=== PATIENT | female | born 1975 | race Caucasian/White ===

== ENCOUNTER → 2024-03-14 17:28 | Outpatient (REF) | payer MEDICARE, OTHER, SELFPAY | LOC: RAD 17:28 | PROVIDERS: ATTENDING PHYSICIAN Urology; FAMILY PHYSICIAN Internal Medicine | DX: N31.9 Neuromuscular dysfunction of bladder, unspecified (principal); R33.9 Retention of urine, unspecified | CPT/HCPCS: 76775 ==

== ENCOUNTER 2024-03-16 12:52 | Emergency (ER) | payer MEDICARE, OTHER, SELFPAY ==
[2024-03-16 12:59] VITALS: BP 131/88
--- NOTE | 2024-03-16 15:14 | ED.GENMED ---
History of Present Illness
General
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
Source: patient
Exam Limitations: none
Time Seen by Provider: 03/16/24 14:51
History of Present Illness
History of Present Illness:
See MDM
Past History
Past History
ED Past Medical History: Cancer (Melanoma), Other and Other (Cerebral palsy, sacral decub, Urinary retention, )
ED Past Surgical History: Orthopedic (achilles cut, right hip surgery)
Social History
Tobacco: Non-smoker
Alcohol: None
Drug: None
Personal: Single
Living: with family
Employment: Not employed
Family History
Family History: CAD
Phy Exam
Physical Exam
Physical Exam:
See MDM
Course
Vital Signs
Initial and Last Documented VS:
Initial Vital Signs
Pulse Resp BP Pulse Ox
72 16 131/88 98
03/16/24 12:59 03/16/24 12:59 03/16/24 12:59 03/16/24 12:59
Last Documented Vital Signs
Pulse Resp BP Pulse Ox
72 16 131/88 98
03/16/24 12:59 03/16/24 12:59 03/16/24 12:59 03/16/24 12:59
Procedures
Urinary Catheter
Procedure completed by: Markel Escobedo DO
Type of urinary catheter: indwelling catheter
Catheter size (danish): 22
Urine description: cloudy
Urine output (ml): 100
MDM/Problems Addressed
Differential Diagnosis Includes:
HPI and MDM Narrative:
48-year-old female with a history of cerebral palsy presenting for evaluation of clogged suprapubic Lindsey. She is due to have the suprapubic changed next week but mother was concerned because it was no longer draining. She is currently on
antibiotics for UTI
Physical exam
General: Well appearing and non-toxic
HEENT: protecting airway
Neck: appears supple
CV: No evidence of cyanosis
Resp: No accessory muscle use
Abd: Non-distended
: Suprapubic Lindsey with sediment
Extremities: Contractures
Neuro: alert
Psych: Normal affect
Skin: Intact
Problems Addressed including Acute and Chronic Conditions affecting care:
1. Suprapubic Lindsey catheter blocked
Acuity: acute
Prognosis: stable
Details: Will change the catheter. She has follow-up next week
Updates
The 22 Turkish 10 mL balloon was removed and replaced with a 22 Turkish 5 mm balloon. Patient tolerated procedure well and discussed follow-up with her urologist next week
Differential Diagnosis (but not limited to): UTI, clogged Lindsey catheter
Testing considered: Urinalysis but she is already on antibiotics
Drug therapy (if applicable): OTC meds, please see d/c instruction regarding Rx drugs
Amount and/or Complexity of Data Reviewed
Clinical info obtained from: Mother
External data reviewed: N/A
Labs I independently reviewed (but not limited to): N/A
Radiology: N/A
Pulse Ox: not hypoxic
EKG independently reviewed: N/A
Cooler Tender: N/A
Critical Care: N/A
Risk of Complication:
Social Determinants of health: Good social support
Discussed with other providers: N/A
Escalation of Care includes Admit/Obs: After being observed in the Emergency Department, pt stable for discharge.
Occasional wrong word or 'sound a like' substitutions may have occurred due to the inherent limitations of voice recognition software. Read the chart carefully and recognize, using context, where substitutions have occurred.
*Critical Care Note
Total Time (30-74mins, 75-104mins- exclusive of procedures): Not Applicable
ED Attending Note
-
Portions of this chart may have been created with voice recognition software.� Occasional wrong word or��sound alike� substitutions may have occurred due to the inherent limitations of voice recognition software.
Discharge Plan
Departure
Patient Disposition: Home (Routine Discharge)
Date of Disposition: 03/16/24
Time of Disposition: 15:44
Patient with high blood pressure during this ER visit?: No
Discharge Problem:
Blocked suprapubic catheter
Instructions: How to care for a urinary catheter
Prescriptions:
No Action
acetaminophen 650 MG/20.3 ML solution
650 mg PO PRN PRN (Reason: fever/pain)
Patient Comments:
powder form, placed directly in mouth, no mixing needed
baclofen 10 MG tablet
10 mg PO DAILY
ascorbic acid (vitamin C) [Vitamin C] 500 MG tablet
1,000 mg PO DAILY
cyanocobalamin (vitamin B-12) 1,000 MCG tablet
1,000 mcg PO DAILY
polyethylene glycol 3350 [Miralax] 17 gram Powder In Packet
17 g PO DAILY
zinc
50 mg PO DAILY
cefdinir 250 mg/5 mL suspension for reconstitution
300 mg PO BID 7 Days Qty: 84 0RF
Referrals:
Samm Messer I., DO [Family Provider] -
Activity Restrictions/Additional Instructions:
Please keep the urology appointment next week. She may benefit from intermittent flushing of the Lindsey catheter.
Please return for any worsening symptoms.
You may return at any time if you have further concerns.
Interventions
Interventions:
*Risk Screen - Suicide Last Done: 03/16/24 12:59
*Neglect/Abuse Screening Last Done: 03/16/24 12:59
Discharge Date and Time
Print Language: ALBANIAN
== END 2024-03-16 15:58 | disposition home or self-care (01) ==
LOC: EMR 12:52
PROVIDERS: EMERGENCY PHYSICIAN Student in an Organized Health Care Education/Training Program; FAMILY PHYSICIAN Internal Medicine
DX: T83.090A Other mechanical complication of cystostomy catheter, initial encounter (principal); Y92.9 Unspecified place or not applicable; G80.8 Other cerebral palsy; Z82.49 Family history of ischemic heart disease and other diseases of the circulatory system; Z85.820 Personal history of malignant melanoma of skin
CPT/HCPCS: 99282

== ENCOUNTER 2024-05-11 21:23 | Emergency (ER) | payer MEDICARE, OTHER, SELFPAY ==
[2024-05-11 21:43] VITALS: BP 124/74
[2024-05-11 22:26] VITALS: BMI 24.8
--- NOTE | 2024-05-11 23:08 | ED.GENMED ---
History of Present Illness
General
Chief Complaint: Skin Surface Trauma
Source: family
Exam Limitations: clinical condition
Time Seen by Provider: 05/11/24 22:00
History of Present Illness
History of Present Illness:
This is a 48-year-old wheelchair-bound female with a history of cerebral palsy who presents after her left foot scraped on a door going into a restaurant. The patient unfortunately suffered an avulsion of the nail of the left no other complaints.
Chronic suprapubic catheter that mom cared for at home.
Past History
Past History
ED Past Medical History: Cancer (Melanoma), Other and Other (Cerebral palsy, sacral decub, Urinary retention secondary to neurogenic bladder)
ED Past Surgical History: Orthopedic (achilles cut, right hip surgery)
Social History
Tobacco: Non-smoker
Alcohol: None
Drug: None
Personal: Single
Living: with family
Employment: Not employed
Family History
Family History: CAD
Phy Exam
Physical Exam
Physical Exam:
CONSTITUTIONAL Vital signs reviewed, Patient alert . Well-appearing
HEAD atraumatic.
EYES eyelids normal to inspection, Extraocular muscles intact, Conjunctiva normal, Sclera normal.
NECK normal range of motion, Trachea midline, no jugular venous distention.
RESP no respiratory distress
UPPER EXTREMITY no obvious cyanosis or edema
LOWER EXTREMITY no obvious cyanosis. There is an avulsion to the nail of the left second digit. No active bleeding. Wound was irrigated extensively during exam
SKIN Skin warm, dry, and normal in color.
Course
Vital Signs
Initial and Last Documented VS:
Initial Vital Signs
Pulse Resp BP Pulse Ox
60 22 124/74 98
05/11/24 21:43 05/11/24 21:43 05/11/24 21:43 05/11/24 21:43
Last Documented Vital Signs
Temp Pulse Resp BP Pulse Ox
98.4 F 60 22 124/74 98
05/11/24 22:25 05/11/24 21:43 05/11/24 21:43 05/11/24 21:43 05/11/24 21:43
MDM/Problems Addressed
MDM/Problems Addressed:
Nail avulsion
*Pulse Oximetry
Patient hypoxic: no
*Critical Care Note
Total Time (30-74mins, 75-104mins- exclusive of procedures): Not Applicable
Data Reviewed
Source: family
Prescriptions/Medications Considered But Not Given:
Considered antibiotics but wound was irrigated extensively
Patient Management
Escalation/DeEscalation of care consider admission/obs:
Wound was irrigated and a piece of Vaseline gauze was placed in the nail fold. She will follow-up with podiatry this week
ED Attending Note
-
Portions of this chart may have been created with voice recognition software.� Occasional wrong word or��sound alike� substitutions may have occurred due to the inherent limitations of voice recognition software.
Discharge Plan
Departure
Patient Disposition: Home (Routine Discharge)
Date of Disposition: 05/11/24
Time of Disposition: 23:09
Patient with high blood pressure during this ER visit?: No
Discharge Problem:
Nail avulsion of toe
Instructions: Wound Care (DC)
Prescriptions:
No Action
acetaminophen 650 MG/20.3 ML solution
650 mg PO PRN PRN (Reason: fever/pain)
Patient Comments:
powder form, placed directly in mouth, no mixing needed
baclofen 10 MG tablet
10 mg PO DAILY
ascorbic acid (vitamin C) [Vitamin C] 500 MG tablet
1,000 mg PO DAILY
cyanocobalamin (vitamin B-12) 1,000 MCG tablet
1,000 mcg PO DAILY
polyethylene glycol 3350 [Miralax] 17 gram Powder In Packet
17 g PO DAILY
zinc
50 mg PO DAILY
cefdinir 250 mg/5 mL suspension for reconstitution
300 mg PO BID 7 Days Qty: 84 0RF
Referrals:
Samm Messer I., DO [Family Provider] -
Activity Restrictions/Additional Instructions:
Please follow-up with podiatry in the next 3 to 5 days as discussed. Keep dressing intact until seen by podiatry. Return immediately for redness, drainage, pain or any other concerns.
Interventions
Interventions:
*General Assessment Last Done: 05/11/24 22:27
*Neglect/Abuse Screening Last Done: 05/11/24 22:27
*ED- Fall Risk Assessment Last Done: 05/11/24 22:27
*ED COVID-19 Vaccine History Last Done: 05/11/24 22:27
ED-Skin Assessment Last Done: 05/11/24 22:14
Discharge Date and Time
Print Language: NEPALI
== END 2024-05-11 23:20 | disposition home or self-care (01) ==
LOC: EMR 21:23
PROVIDERS: EMERGENCY PHYSICIAN Emergency Medicine; FAMILY PHYSICIAN Internal Medicine
DX: S91.205A Unspecified open wound of left lesser toe(s) with damage to nail, initial encounter (principal); W22.09XA Striking against other stationary object, initial encounter; G80.8 Other cerebral palsy; N31.9 Neuromuscular dysfunction of bladder, unspecified; Z85.820 Personal history of malignant melanoma of skin
CPT/HCPCS: 99282

== ENCOUNTER → 2024-07-23 13:03 | Outpatient (REF) | payer MEDICARE, OTHER, SELFPAY ==
[2024-07-23 14:19] LABS: Urine Albumin 3+ (Neg - Trace); Urine Bilirubin Negative (Negative); Urine Character Cloudy (Clear); Urine Color Brown; Urine Glucose Negative (Negative); Urine Ketone 3+ (Negative); Urine Leukocyte 2+ (Negative); Urine Nitrite Negative (Negative); Urine Occult Blood 4+ (Negative); Urine Urobilinogen Negative (Neg - 1+)
[2024-07-23 14:38] LABS: Urine Squamous Cell 16-20 /LPF (Few)
[2024-07-23 14:39] LABS: Urine Amorphous Seen; Urine Triple Phosphate Crystal Present
[2024-07-23 14:42] LABS: Urine Red Blood Cell 80-90 /HPF (0-2)
[2024-07-23 14:43] LABS: Urine Bacteria Many (Negative); Urine White Cell 26-30 /HPF (0-5)
== END ==
LOC: CLAB 13:03
PROVIDERS: ATTENDING PHYSICIAN Internal Medicine; REFERRING PHYSICIAN Urology
DX: R33.9 Retention of urine, unspecified (principal); Z43.5 Encounter for attention to cystostomy
CPT/HCPCS: 81003; 81015; 87077; 87086; 87088; 87186

== ENCOUNTER 2024-07-23 20:20 | Inpatient (IN) | payer MEDICARE, OTHER, SELFPAY ==
[2024-07-23] VITALS (19 sets, daily range): BP systolic 101–167; BP diastolic 60–106; BMI 22.3; BMI 22.6
[2024-07-23 17:29] LABS: % Basophils 0.5 % (0-2); % Eosinophils 0.1 % (0-6); % Lymphocytes 7.2 % (20.5-51.1); % Monocytes 8.3 % (1.7-9.3); % Neutrophils 82.9 % (42.2-75.2); Absolute Basophils 0.1 10^3/uL (0-0.2); Absolute Immature Granulocytes 0.2 10^3/uL (0-0.05); Absolute Lymphocytes 1.1 10^3/uL (1.2-3.4); Absolute Monocytes 1.3 10^3/uL (0.1-0.6); Absolute Neutrophils 12.9 10^3/uL (1.4-6.5); Hematocrit 43.6 % (37.0-47.0); Hemoglobin 14.1 g/dL (12.0-16.0); Mean Corp Hgb Conc. 32.3 g/dL (33.0-37.0); Mean Corpuscular Hgb 28.8 pg (27.0-31.0); Mean Corpuscular Volume 89.2 fL (81.0-99.0); Mean Platelet Volume 9.9 fL (7.4-10.4); Nucleated Red Blood Cells % 0 %; Platelet Count 329 10^3/uL (130-400); Red Blood Cell Count 4.89 10^6/uL (4.20-5.40); White Blood Cell Count 15.5 10^3/uL (4.8-10.8)
--- NOTE | 2024-07-23 17:52 | ED.GENMED ---
History of Present Illness
General
Chief Complaint: Fever
Time Seen by Provider: 07/23/24 16:41
History of Present Illness
History of Present Illness:
48-year-old female with history of cerebral palsy and chronic suprapubic catheter presenting to the emergency department for fever and lethargy. Patient arrives with parents report fever started today, patient was having shaking chills. Suprapubic
catheter was last changed a week ago, however note foul odor to the urine. No report of recent cough or sick contacts. Patient limited historian given her cerebral palsy. Last dose of Tylenol was this morning. No additional history or symptoms
reported at this time
Past History
Past History
ED Past Medical History: Cancer (Melanoma), Other and Other (Cerebral palsy, sacral decub, Urinary retention secondary to neurogenic bladder)
ED Past Surgical History: Orthopedic (achilles cut, right hip surgery)
Social History
Tobacco: Non-smoker
Alcohol: None
Drug: None
Personal: Single
Living: with family
Employment: Not employed
Family History
Family History: CAD
Phy Exam
Physical Exam
Physical Exam:
General: No acute distress
HEENT: protecting airway
Neck: appears supple
CV: Tachycardic, regular rhythm
Resp: No accessory muscle use, no increased work of breathing, lungs clear to auscultation bilaterally
Abd: No distention, nontender
Extremities: No deformities, no swelling, contracted upper and lower extremities
Neuro: alert, known cerebral palsy with chronic contractures
: deferred
Rectal: deferred
Psych: Normal affect
Skin: Intact
Sepsis
Sepsis Screening
Sepsis Assessment: Sepsis
Sepsis Screen
Sepsis Screen: Sepsis
Date: 07/23/24
Time: 19:41
Course
Orders/Labs/Results
Orders:
Orders
07/23/24 17:11
Complete Blood Count/With Diff Urgent
Blood Culture Q20M
OLIVEIR Source: Blood/Venous
Specimen Description:
Comment: Urgent from separate sites. If patient screens positive for possible sepsis
07/23/24 17:31
0.9% Sodium Chloride 1000 ml [Nss] 1,000 ml IV BOLUS
Acetaminophen [Tylenol/Feverall] 650 mg RECTAL NOW STA
07/23/24 18:20
Urinalysis Reflex To Culture Urgent
Date Specimen was Collected: 07/23/24
Time Specimen was Collected: 18:19
Urine Microscopic Reflex Cult Urgent
Urine Culture Urgent
OLIVIER Source: U
Specimen Description:
Date Specimen was Collected: 07/23/24
Time Specimen was Collected: 18:19
07/23/24 18:46
Comprehensive Metabolic Panel Urgent
Lactic Acid Urgent
Blood Culture Q20M
OLIVIER Source: Blood/Venous
Specimen Description:
Comment: Urgent from separate sites. If patient screens positive for possible sepsis
07/23/24 19:06
Cefepime HCl [Maxipime] 2,000 mg IV NOW STA
Abnormal Lab Results
07/23/24 07/23/24 07/23/24
17:11 18:20 18:46
WBC 15.5 H 10^3/uL
(4.8-10.8)
MCHC 32.3 L g/dL
(33.0-37.0)
RDW 15.0 H %
(11.5-14.5)
Abs Immat Gran (auto) 0.2 H 10^3/uL
(0-0.05)
Absolute Neuts (auto) 12.9 H 10^3/uL
(1.4-6.5)
Absolute Lymphs (auto) 1.1 L 10^3/uL
(1.2-3.4)
Absolute Monos (auto) 1.3 H 10^3/uL
(0.1-0.6)
Immature Gran % 1.0 H %
(0-0.5)
Neutrophils % 82.9 H %
(42.2-75.2)
Lymphocytes % 7.2 L %
(20.5-51.1)
Chloride 110 H mmol/L
(98-107)
BUN 29 H mg/dl
(7-17)
Glucose 109 H mg/dl
(70-99)
Urine Ketones 1+ A
(Negative)
Ur Occult Blood Reflex 4+ A
(Negative)
Leukocyte Esterase Rfl 3+ A
(Negative)
Urine RBC >100 A /HPF
(0-2)
Urine WBC (Reflex) 30-40 A /HPF
(0-5)
Urine Bacteria (Reflex) Many A
(Negative)
Urine Albumin (Reflex) 4+ A
(Neg - Trace)
07/23/24 17:11
07/23/24 18:46
Vital Signs
Initial and Last Documented VS:
Initial Vital Signs
Temp Pulse Resp BP Pulse Ox
98.2 F 103 16 126/66 100
07/23/24 15:40 07/23/24 15:40 07/23/24 15:40 07/23/24 15:40 07/23/24 15:40
Last Documented Vital Signs
Temp Pulse Resp BP Pulse Ox
101.3 F H 117 22 119/94 95
07/23/24 16:49 07/23/24 19:15 07/23/24 19:15 07/23/24 19:15 07/23/24 19:15
MDM/Problems Addressed
MDM/Problems Addressed:
48-year-old female with history of cerebral palsy presenting for fever and lethargy. Vital signs arrival significant for fever and tachycardia.
On exam patient is in no acute distress. Patient suprapubic catheter malodorous, sediment. Abdomen soft and nondistended. Vital signs concerning for sepsis. Suspected source being urinary. Suprapubic catheter changed without issue. Will send
urine from clean catheter. Plan for laboratory analysis, lactic acid, blood cultures. Will start patient IV fluids and administer Tylenol for fever. Patient is a difficult IV access, delay in laboratory analysis.
19:35 -patient's urine does appear infected. Lactate within normal limits. Heart rate remains elevated. For this reason, feel patient warrants admission for concern for sepsis from urinary source. Cefepime ordered. Plan for admission.
*Critical Care Note
Total Time (30-74mins, 75-104mins- exclusive of procedures): Not Applicable
ED Attending Note
-
Portions of this chart may have been created with voice recognition software.� Occasional wrong word or��sound alike� substitutions may have occurred due to the inherent limitations of voice recognition software.
Discharge Plan
Departure
Patient Disposition: Admit
Date of Disposition: 07/23/24
Time of Disposition: 19:40
Presentation/result/management discussed w/ accepting MD/DO: Hospitalist
Patient with high blood pressure during this ER visit?: No
Condition: Fair
Discharge Problem:
Complicated urinary tract infection, Sepsis
Prescriptions:
No Action
acetaminophen 650 MG/20.3 ML solution
650 mg PO PRN PRN (Reason: fever/pain)
Patient Comments:
powder form, placed directly in mouth, no mixing needed
baclofen 10 MG tablet
10 mg PO DAILY
ascorbic acid (vitamin C) [Vitamin C] 500 MG tablet
1,000 mg PO DAILY
cyanocobalamin (vitamin B-12) 1,000 MCG tablet
1,000 mcg PO DAILY
polyethylene glycol 3350 [Miralax] 17 gram Powder In Packet
17 g PO DAILY
zinc
50 mg PO DAILY
cefdinir 250 mg/5 mL suspension for reconstitution
300 mg PO BID 7 Days Qty: 84 0RF
Referrals:
UNKNOWN - PT DOES,NOT KNOW [Unknown Provider]
Interventions
Interventions:
*Risk Screen - Suicide Last Done: 07/23/24 15:44
*General Assessment Last Done: 07/23/24 16:59
*Neglect/Abuse Screening Last Done: 07/23/24 15:44
*ED- Fall Risk Assessment Last Done: 07/23/24 16:59
*ED COVID-19 Vaccine History Last Done: 07/23/24 16:59
ED- Neurological Assessment Last Done: 07/23/24 16:59
ED-Skin Assessment Last Done: 07/23/24 16:59
Discharge Date and Time
Print Language: MOSOTHO
[2024-07-23] MEDS: NSS 1000 IV ×3 (17:59→22:21)
[2024-07-23] MEDS: TYLENOL/FEVERALL 650 MG RECTAL ×2 (18:19→22:21)
[2024-07-23 18:33] LABS: Urine Albumin 4+ (Neg - Trace); Urine Bilirubin Negative (Negative); Urine Character Cloudy (Clear); Urine Color Amber; Urine Glucose Negative (Negative); Urine Ketone 1+ (Negative); Urine Leukocyte 3+ (Negative); Urine Nitrite Negative (Negative); Urine Occult Blood 4+ (Negative); Urine Urobilinogen Negative (Neg - 1+)
[2024-07-23 18:57] LABS: Urine Red Blood Cell >100 /HPF (0-2)
[2024-07-23 18:58] LABS: Urine Bacteria Many (Negative); Urine Calcium Oxalate Crystals Present; Urine White Cell 30-40 /HPF (0-5)
[2024-07-23 19:07] LABS: Lactic Acid 1.5 mmol/L (0.7-2.0)
[2024-07-23 19:10] LABS: ALT (SGPT) 13 U/L (0-35); AST (SGOT) 17 U/L (14-36); Alkaline Phosphatase 87 U/L (38-126); Blood Urea Nitrogen 29 mg/dl (7-17); Carbon Dioxide 25 mmol/L (22-30); Chloride 110 mmol/L (98-107); Estimated Creatinine Clearance 56 ml/min; Glucose 109 mg/dl (70-99); Potassium 4.2 mmol/L (3.5-5.1); Sodium 141 mmol/L (135-145); Total Bilirubin 0.9 mg/dl (0.2-1.3); Total Protein 6.9 g/dl (6.3-8.2); eGFR > 60.00
[2024-07-23] MEDS: MAXIPIME 2000 MG IV (19:45)
--- NOTE | 2024-07-23 20:04 | W.PN.UPDATE ---
Update Note
Progress Note Update
Patient was independently examined and I agree with H&P written on the same day. In addition:
48yo F with PMHx of CP, suprapubic catheter came with lethargy and fever, catheter replaced in ED, UA concerning for UTI
Sepsis on admission (Tachycardia, leukocytosis, fever) /2 UTI
Ceftriaxone, Ucx, Bcx
IVF
We have spent at least 76min admitting the patient
--- NOTE | 2024-07-23 20:13 | HPS.HSE ---
Family Physician
-
Family Physician: Samm Messer
Chief Complaint
-
Fever and Lethargy
History of Present Illness
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 Patient is non-verbal therefore history is obtained from patient's parents at the bedside. Patient
was notably more lethargy today. She was not very interactive which is not her normal. Family reports fevers at home associated with shaking chills. Parent haven noted urine is malodorous. Suprapubic catheer was changed about one week ago. No
reports of other symptoms.
Medical History
Past Medical History
Past Medical History: Reports Other
Additional Past Medical History:
Spastic Cerebral Palsy
Chronic Urinary Retention with Suprapubic Catheter
Recurrent UTIs
Melanoma
Past Surgical History: Reports Other
Additional Past Surgical History:
Suprapubic Catheter
Multiple Adductor Tenotomy
Social History
Tobacco: Non-smoker
Living: With Family
Family History
Family History: Not pertinent
Allergies / Home Medications
Allergies reflects when Allergies were last updated in [facility].
Home Medications with original date entered in [facility]
Allergy/Medication List:
Allergies
Allergy/AdvReac Type Severity Reaction Status Date / Time
No Known Allergies Allergy Verified 05/11/24 21:46
Home Medications
acetaminophen 650 mg/20.3 mL oral solution 650 mg PO PRN PRN fever/pain 07/15/20
baclofen 10 mg tablet 10 mg PO DAILY Muscle spasms 08/28/20
ascorbic acid (vitamin C) 500 mg tablet (Vitamin C) 1,000 mg PO DAILY Supplement 04/02/21
cyanocobalamin (vitamin B-12) 1,000 mcg tablet 1,000 mcg PO DAILY Supplement 04/07/21
polyethylene glycol 3350 17 gram oral powder packet (Miralax) 17 g PO DAILY 07/01/22
zinc 50 mg PO DAILY 07/01/22
gabapentin 250 mg/5 mL (5 mL) oral solution 250 mg PO DAILY 07/23/24
methenamine hippurate 1 gram tablet 1 g PO BID 07/23/24
Review of Systems
-
Unable to obtain full review of systems at this time due to: Patient Non-verbal
History Source: Family
Constitutional: Reports Fever and Fatigue
Respiratory: Denies Cough
Abdomen/GI: Denies Nausea, Vomiting or Diarrhea
Physical Exam
Vital Signs
Vital Signs
Temp Pulse Resp BP Pulse Ox
101.3 F H 120 21 119/76 96
07/23/24 16:49 07/23/24 19:45 07/23/24 19:45 07/23/24 19:45 07/23/24 19:30
Physical Exam
General: Well Nourished and Comfortable; No Respiratory Distress
HEENT: Anicteric and Moist mucous membranes
Respiratory: Clear and Non Labored Respirations
Cardiac: S1/S2, Regular Rhythm and Tachycardia
GI: Soft and Non Tender
Rectal: Deferred by Provider
Genito-urinary: Suprapubic Tube
Musculoskeletal: No Clubbing, No Cyanosis and Other (Contracted upper extremities; Muscle atrophy of lower extremities)
Skin: Warm and Dry
Neuro: Awake, Alert and Other (Turn head towards my voice)
Psych: Calm
Laboratory Results
-
07/23/24 17:11
07/23/24 18:46
Laboratory Results
Lactic Acid Cancelled 07/23/24 21:00
Total Bilirubin 0.9 mg/dl (0.2-1.3) 07/23/24 18:46
AST 17 U/L (14-36) 07/23/24 18:46
ALT 13 U/L (0-35) 07/23/24 18:46
Alkaline Phosphatase 87 U/L (38-126) 07/23/24 18:46
Data Reviewed
-
Lab Data: Labs Reviewed by me
Old Records: Reviewed
Impression/Plan
-
Sepsis secondary to Catheter-Associated UTI
-Suprapubic catheter changed in the emergency department
-Continue IVFs
-Continue ceftriaxone
-Await urine culture
Spastic Cerebral Palsy
-Per family patient usual eats mostly regular food. She is noted to be retaining some potato chip in her mouth upon my evaluation
-Plan for NPO for now until seen by speech therapy
-Hold gabapentin and baclofen
DVT proph: Lovenox
Code Status: Full Code
[2024-07-23] MEDS: TORADOL 15 MG IV (21:20)
--- NOTE | 2024-07-23 22:15 | PTCARENOTE ---
Patient received from ED via stretcher. Patient immobile, wheelchair bound at baseline. Patient was a pullover from stretcher to bed. Patient is nonverbal, does mouth words at times. Patient is aaox3, able to make needs known. Patient has fever with
high BP and HR documented in vital signs tab. Covering provider Maris Keys is aware. 2 sets of blood cultures drawn per order. Rectal tylenol given per order.
[2024-07-23] MEDS: STERILE WATER FOR INJECTION 10 ML IV (23:01)
[2024-07-23] MEDS: ROCEPHIN 1000 MG IV (23:01)
[2024-07-24] VITALS (7 sets, daily range): BP systolic 87–166; BP diastolic 50–122
[2024-07-24] MEDS: CALDOLOR 104 MG IV (01:03)
[2024-07-24 07:34] LABS: Hematocrit 32.5 % (37.0-47.0); Hemoglobin 10.6 g/dL (12.0-16.0); Mean Corp Hgb Conc. 32.6 g/dL (33.0-37.0); Mean Corpuscular Hgb 28.7 pg (27.0-31.0); Mean Corpuscular Volume 88.1 fL (81.0-99.0); Mean Platelet Volume 10.3 fL (7.4-10.4); Platelet Count 203 10^3/uL (130-400); Red Blood Cell Count 3.69 10^6/uL (4.20-5.40); Red Cell Dist. Width 14.8 % (11.5-14.5); White Blood Cell Count 10.7 10^3/uL (4.8-10.8)
[2024-07-24 08:12] LABS: Blood Urea Nitrogen 28 mg/dl (7-17); Calcium 7.9 mg/dl (8.4-10.2); Carbon Dioxide 14 mmol/L (22-30); Chloride 118 mmol/L (98-107); Estimated Creatinine Clearance 51 ml/min; Glucose 86 mg/dl (70-99); Potassium 3.2 mmol/L (3.5-5.1); Sodium 142 mmol/L (135-145); eGFR > 60.00
--- NOTE | 2024-07-24 08:23 | VNURNOTE ---
Chart reviewed. Patient is current with [facility] nursing, INTERNAL MEDICINE HOSPITALIST, OT. Will continue to follow hospital course and DC plans.
--- NOTE | 2024-07-24 09:20 | PTOTSP ---
Speech Language Pathology
Pt seen for clinical bedside swallow evaluation. Pt non-verbal but able to shake head for yes/no appropriately. Slow responses noted. P.O. trials of puree, regular solids, and thin liquids provided. Prolonged oral phase of noted with delayed
initiation of oral management with oral holding at times prior to re-initiating oral management. Typical piecemeal deglutition. With regular solids, prolonged mastication noted. Entire bolus noted in anterior oral cavity after done masticating,
which was removed by ENVIRONMENTAL RESTORATION PLANNER. No overt signs of aspiration noted. Set up suction in room for oral care and for suctioning post meals.
Recommend:
(1) IDDSI Level 4 (Puree) and thin liquids
(2) Aspiration precautions: full assist, sit upright, slow rate, single sips, ensure pt swallows prior to next bite/sip, oral suctioning post meals and during meals as needed
(3) Meds crushed in puree
(4) ENVIRONMENTAL RESTORATION PLANNER to continue to follow
[2024-07-24] MEDS: LR 1000 IV ×3 (10:36→23:02)
--- NOTE | 2024-07-24 12:40 | CM ---
Patient seen bedside w/ brotherPaulino. Initial assessment completed. 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 Patient is non-verbal.
Patient resides w/ mother and father in a 2STH, no steps, ramp access. Patient's parents are caretakers for patient. Patient has mechanical w/c, rené lift, commode, shower chair, grab bar and raised toilet seat in the home. Assisted w/ ADLs.
Patient's parents have a conversion van to transport patient. No SNF hx, current w/ [facility].
Address, points of contact and insurance verified
PCP: Samm Messer
Pharmacy: [facility]
Parents will transport patient home when stable
Plan: Anticipate home, [facility] w/ [facility].
--- NOTE | 2024-07-24 14:20 | W.PN.HOSP.TC ---
Today's Communication/Plan
-
f/u cultures
abx
k repletion
LR IVF, monitor Hco3
Assessment / Plan
Assessment / Plan
Physical Exam
General: Well Nourished and Comfortable; No Respiratory Distress
HEENT: Anicteric and Moist mucous membranes
Respiratory: Clear and Non Labored Respirations
Cardiac: S1/S2, Regular Rhythm and Tachycardia
GI: Soft and Non Tender
Rectal: Deferred by Provider
Genito-urinary: Suprapubic Tube
Musculoskeletal: No Clubbing, No Cyanosis and Other (Contracted upper extremities; Muscle atrophy of lower extremities)
Skin: Warm and Dry
Neuro: Awake, Alert and Other (Turn head towards my voice)
Psych: Calm
Sepsis secondary to Catheter-Associated UTI
-Suprapubic catheter changed in the emergency department
-Continue IVFs
-Continue ceftriaxone
-Await urine culture
-F/u Blood Cultures
#Anemia
#hemodilution
-appears to be at baseline
#Hypokalemia
-monitor and replete
#Metabolic Acidosis
#?MINGO
-Stop NSS
-Provide LR
-monitor hco3 closely
-stop ibuprofen
Spastic Cerebral Palsy
-Per family patient usual eats mostly regular food. She is noted to be retaining some potato chip in her mouth upon my evaluation
-Resume modified diet
-Hold gabapentin and baclofen
DVT proph: Lovenox
Code Status: Full Code
Anticipated Discharge: > 48 hours
Subjective/Interval History
-
Date of Service: July 24, 2024
No acute events overnight
Objective Data
-
Labs:
Laboratory Results
07/24/24
06:19
WBC 10.7
Hgb 10.6 L D
Hct 32.5 L
Plt Count 203 D
Sodium 142
Potassium 3.2 L
Chloride 118 H
Carbon Dioxide 14 L*
BUN 28 H
Creatinine 1.1 H
Glucose 86
Calcium 7.9 L
Vital Signs:
Vital Signs
Temp Pulse Resp BP Pulse Ox
97.9 F 89 16 105/70 96
07/24/24 11:00 07/24/24 11:00 07/24/24 11:00 07/24/24 11:00 07/24/24 11:00
Review of Systems
-
History Source: Patient
All other systems: Not reviewed unless documented
Data Reviewed
-
Labs: Labs Reviewed by me
[2024-07-24 15:32] LABS: Blood Urea Nitrogen 28 mg/dl (7-17); Calcium 8.2 mg/dl (8.4-10.2); Carbon Dioxide 18 mmol/L (22-30); Chloride 116 mmol/L (98-107); Estimated Creatinine Clearance 56 ml/min; Glucose 105 mg/dl (70-99); Potassium 3.6 mmol/L (3.5-5.1); Sodium 143 mmol/L (135-145); eGFR > 60.00
[2024-07-24] MEDS: KCL 270 MEQ IV (15:33)
[2024-07-24] MEDS: LOVENOX 40 MG SC (16:46)
[2024-07-24] MEDS: TYLENOL ORAL SOLUTION 650 MG PO (16:47)
[2024-07-24] MEDS: TYLENOL/FEVERALL 650 MG RECTAL (19:31)
[2024-07-24] MEDS: OFIRMEV 100 IV (23:02)
[2024-07-24] MEDS: FLUSH (NSS) 1 FLUSH IV ×2 (23:03→23:10)
[2024-07-24] MEDS: STERILE WATER FOR INJECTION 10 ML IV (23:03)
[2024-07-24] MEDS: ROCEPHIN 1000 MG IV (23:04)
[2024-07-25 03:18] VITALS: BP 96/59
[2024-07-25 07:00] VITALS: BP 94/58
[2024-07-25 07:52] LABS: Hemoglobin 10.9 g/dL (12.0-16.0); Mean Corpuscular Hgb 28.7 pg (27.0-31.0); Mean Corpuscular Volume 86.8 fL (81.0-99.0); Mean Platelet Volume 10.2 fL (7.4-10.4); Platelet Count 115 10^3/uL (130-400); Red Cell Dist. Width 15.3 % (11.5-14.5); White Blood Cell Count 3.6 10^3/uL (4.8-10.8)
--- NOTE | 2024-07-25 08:35 | PTOTSP ---
Speech Language Pathology
Pt seen for dysphagia tx. RN reported aspiration event with liquid med yesterday. Seen with breakfast tray of pureed solids/thin liquids. Oral manipulation noted with puree; however, entire bolus eventually suctioned from anterior oral cavity
multiple times. This was worse with thicker textures. With thin liquids via single straw sip, weak cough response noted with 2/3 trials. Suspect aspiration.
Recommend:
(1) Strict NPO
(2) Oral care 4x/day with suctioning as needed
(3) Non-oral meds
(4) Will hold on Aspiration Risk Hydration Protocol (ARHP) at this time. With ice chips, would be concerned for possibility of airway obstruction given oral motor deficits, and with thin liquids, would be concerned for high risk for pulmonary
complications given bedbound status
(5) INKING MACHINE TENDER to continue to follow
[2024-07-25 08:37] LABS: ALT (SGPT) 12 U/L (0-35); AST (SGOT) 16 U/L (14-36); Albumin 2.6 g/dl (3.5-5.0); Alkaline Phosphatase 97 U/L (38-126); Blood Urea Nitrogen 31 mg/dl (7-17); Calcium 8.1 mg/dl (8.4-10.2); Carbon Dioxide 18 mmol/L (22-30); Chloride 118 mmol/L (98-107); Estimated Creatinine Clearance 56 ml/min; Glucose 93 mg/dl (70-99); Potassium 3.8 mmol/L (3.5-5.1); Sodium 143 mmol/L (135-145); Total Bilirubin 0.7 mg/dl (0.2-1.3); Total Protein 5.1 g/dl (6.3-8.2); eGFR > 60.00
[2024-07-25] MEDS: ZOSYN 100 IV (09:38)
[2024-07-25] MEDS: LR 1000 IV ×2 (10:02→19:40)
[2024-07-25 11:27] VITALS: BP 82/54
--- NOTE | 2024-07-25 12:32 | W.PN.HOSP.TC ---
Today's Communication/Plan
-
zosyn
MRSA swab
ID consulted
F/u final cultures
Assessment / Plan
Assessment / Plan
Physical Exam
General: Well Nourished and Comfortable; No Respiratory Distress
HEENT: Anicteric and Moist mucous membranes
Respiratory: Clear and Non Labored Respirations
Cardiac: S1/S2, Regular Rhythm and Tachycardia
GI: Soft and Non Tender
Rectal: Deferred by Provider
Genito-urinary: Suprapubic Tube
Musculoskeletal: No Clubbing, No Cyanosis and Other (Contracted upper extremities; Muscle atrophy of lower extremities)
Skin: Warm and Dry
Neuro: Awake, Alert and Other (Turn head towards my voice)
Psych: Calm
Sepsis secondary to Catheter-Associated UTI, Bacteremia
-Suprapubic catheter changed in the emergency department
-Continue IVFs
-Switch to Zosyn
-Await urine culture
-F/u Blood Cultures
- ID consulted
-MRSA swab
#Anemia
#hemodilution
-appears to be at baseline
#Hypokalemia
-monitor and replete
#Metabolic Acidosis
#?MINGO
-Stop NSS
-Provide LR
-monitor hco3 closely
-stop ibuprofen
Spastic Cerebral Palsy
-Per family patient usual eats mostly regular food. She is noted to be retaining some potato chip in her mouth upon my evaluation
-Resume modified diet
-Hold gabapentin and baclofen
DVT proph: Lovenox
Code Status: Full Code
Anticipated Discharge: > 48 hours
Subjective/Interval History
-
Date of Service: July 25, 2024
no acute events
Objective Data
-
Labs:
Laboratory Results
07/25/24
06:17
WBC 3.6 L
Hgb 10.9 L
Hct 33.0 L
Plt Count 115 L D
Sodium 143
Potassium 3.8
Chloride 118 H
Carbon Dioxide 18 L
BUN 31 H
Creatinine 1.0
Glucose 93
Calcium 8.1 L
Total Bilirubin 0.7
AST 16
ALT 12
Alkaline Phosphatase 97
Vital Signs:
Vital Signs
Temp Pulse Resp BP Pulse Ox
99 F 110 16 82/54 97
07/25/24 11:27 07/25/24 11:27 07/25/24 11:27 07/25/24 11:27 07/25/24 11:27
I&O
07/24/24 07/25/24 07/26/24
06:59 06:59 06:59
Intake Total 1300 / 1300
Output Total 300 / 300
Balance 1000 / 1000
Review of Systems
-
History Source: Patient
All other systems: Not reviewed unless documented
Data Reviewed
-
Labs: Labs Reviewed by me
--- NOTE | 2024-07-25 14:20 | CON.ID ---
Consultation
-
Date/Time Consultation Requested: 07/25/2024 1233
Date/Time Consultation Performed: 07/25/2024 1420
Requesting Provider: Dr. Fuchs
Performing Provider: Dr. Small
Reason for Consultation: Bacteremia
Chief Complaint / Past History
History of Present Illness
Amanda Wolff is a 48-year-old female with a significant past medical history of cerebral palsy being evaluated at the request of Dr. Fuchs in regards to bacteremia and complicated urinary tract infection. History is obtained from chart
review along with history from the patient's mother who is at the bedside. The patient is nonverbal and could not provide any history for me.
The patient resides at home with her parents and has a history of urinary retention, and has had a suprapubic catheter in place for some time now. She is followed by Urology (Dr. Asif), and currently has the SPC replaced every 2 weeks. On the
morning of 07/23, the patient woke up and did not feel well. Her mother reports that she had some firmness to her abdomen, and did not want to eat breakfast. Additionally, she developed rigors. They reached out to Urology, and it was advised for
her to come to the emergency room for further evaluation.
Here, blood cultures were obtained, which are now positive for gram-negative rods. Urinalysis revealed pyuria. She was started on empiric antibiotics, and Infectious Diseases is now asked to comment upon further antimicrobial management. At the
present time, the patient reports that she is feeling improved by nodding her head yes. She denies specific pain. No further review of systems is possible.
Past History
Additional Past Medical History:
Hx melanoma
Cerebral palsy
Sacral decubiti
Urinary retention
Additional Past Surgical History:
Achilles surgery
Right hip surgery
Allergy History:
No Known Allergies Allergy (Verified 05/11/24 21:46)
Medications Reviewed: Yes
Current Antibiotics:
Zosyn 4.5 g IV every 6 hours
Social History
Tobacco: Non-Smoker
Alcohol: None
Drug: None
Personal: Single
Living: With Family
Employment: Disabled
Family History
Family History: Not Pertinent
Review of Systems
Vital Signs
Temp Pulse Resp BP Pulse Ox
99 F 110 16 82/54 95
07/25/24 11:27 07/25/24 11:27 07/25/24 11:27 07/25/24 11:27 07/25/24 12:37
Physical Exam
Physical Exam
Constitutional: Comfortable, Chronically Ill and Non-toxic
Eyes: No Conjunctival Hemorrhage and Sclera Anicteric
Oral: No Thrush and No Ulcers
Cardiovascular: S1/S2; Negative S3/S4
Pulmonary: Clear; Negative Wheezes, Rales or Rhonchi
Gastrointestinal: Soft, Non Tender, Non Distended, Normal Bowel Sounds, No Rebound and No Guarding
Genito-Urinary: Lindsey (Suprapubic) and Clear Urine; Negative Turbid Urine
Extremities: Edema; Negative Cyanosis or Erythema
Neurological: Awake, Alert and Other (Nonverbal)
.
Lab / Diagnostic Study Results
07/25/24 06:17
07/25/24 06:17
Abs Immat Gran (auto) 0.2 10^3/uL (0-0.05) H 07/23/24 17:11
Absolute Neuts (auto) 12.9 10^3/uL (1.4-6.5) H 07/23/24 17:11
Absolute Lymphs (auto) 1.1 10^3/uL (1.2-3.4) L 07/23/24 17:11
Absolute Monos (auto) 1.3 10^3/uL (0.1-0.6) H 07/23/24 17:11
Absolute Basos (auto) 0.1 10^3/uL (0-0.2) 07/23/24 17:11
Immature Gran % 1.0 % (0-0.5) H 07/23/24 17:11
Neutrophils % 82.9 % (42.2-75.2) H 07/23/24 17:11
Lymphocytes % 7.2 % (20.5-51.1) L 07/23/24 17:11
Monocytes % 8.3 % (1.7-9.3) 07/23/24 17:11
Eosinophils % 0.1 % (0-6) 07/23/24 17:11
Basophils % 0.5 % (0-2) 07/23/24 17:11
Lactic Acid Cancelled 07/23/24 21:00
Ur Squamous Epith Cells 3-5 /LPF (Few) 07/23/24 18:20
Microbiology Results
Micro:
07/25/24 14:14 Nasal Screen MRSA (PCR) - Pending
Nose
07/23/24 17:11 Blood Culture - Preliminary
Blood/Venous Positive culture in progress
Gram Stain - Preliminary
07/23/24 18:20 Urine Culture - Preliminary
Urine Gram negative bacilli
07/23/24 18:46 Blood Culture - Preliminary
Blood/Venous Gram negative bacilli
Gram Stain - Preliminary
07/25/24 09:27 Blood Culture - Pending
Blood/Venous
07/23/24 22:41 Blood Culture - Preliminary
Blood/Venous No Growth in 24 hours- Final report to follow
07/23/24 22:01 Blood Culture - Preliminary
Blood/Venous No Growth in 24 hours- Final report to follow
Assessment / Plan
Gram-negative bee bacteremia
Complicated urinary tract infection
Leukocytosis; now leukopenic
Hx melanoma
Cerebral palsy
Sacral decubiti
Urinary retention
Recommendations:
Continue with Zosyn for the present; decrease to 3.375 g IV every 6 hours
Follow white count and temperature curve.
Check renal ultrasound given bacteremia to assess for any obstructive urinary process.
Await final culture data to guide further antimicrobial selection and potential de-escalation.
Further recommendations as additional data is returned.
[2024-07-25 15:00] VITALS: BP 88/62
[2024-07-25] MEDS: ZOSYN 50 IV ×2 (16:39→22:31)
[2024-07-25] MEDS: LOVENOX 40 MG SC (16:40)
[2024-07-25] MEDS: LR 500 IV (18:09)
[2024-07-25 19:30] VITALS: BP 116/78
[2024-07-25] MEDS: FLUSH (NSS) 1 FLUSH IV (22:31)
[2024-07-25 23:33] VITALS: BP 123/85
[2024-07-26] MEDS: FLUSH (NSS) IV ×2 (00:46)
[2024-07-26 03:24] VITALS: BP 130/79
[2024-07-26] MEDS: ZOSYN 50 IV ×4 (04:36→21:33)
[2024-07-26] MEDS: LR 1000 IV (05:46)
[2024-07-26 07:50] VITALS: BP 131/86
[2024-07-26 08:13] LABS: Hematocrit 30.6 % (37.0-47.0); Hemoglobin 10.3 g/dL (12.0-16.0); Mean Corp Hgb Conc. 33.7 g/dL (33.0-37.0); Mean Corpuscular Hgb 28.9 pg (27.0-31.0); Mean Corpuscular Volume 85.7 fL (81.0-99.0); Mean Platelet Volume 11.4 fL (7.4-10.4); Platelet Count 105 10^3/uL (130-400); Red Blood Cell Count 3.57 10^6/uL (4.20-5.40); Red Cell Dist. Width 15.5 % (11.5-14.5); White Blood Cell Count 8.6 10^3/uL (4.8-10.8)
[2024-07-26] MEDS: TYLENOL/FEVERALL 650 MG RECTAL (08:24)
--- NOTE | 2024-07-26 08:45 | PTOTSP ---
Speech Language Pathology
Pt seen for dysphagia tx. Pt more interactive this date, verbalizing 'yes' and 'no' a few times. Trialed thin water via single straw sips. Cough noted with 2/3 initial sips of water. However, as trials progressed, no further coughing noted with
additional 10 sips of water. Also trialed applesauce and jello. Prolonged bolus formation and A-P transit noted with increased speed as trials progressed. Able to clear oral cavity independently with these textures.
Recommend:
(1) IDDSI Level 4 (Puree) and Thin Liquids. Pt will do best with more thin purees, such as soups and applesauce as opposed to pureed meats
(2) Aspiration precautions: sit upright, slow rate, single straw sips (pinch straw)
(3) Ensure pt clears food from oral cavity. If she does not, complete oral suctioning and defer that item
(4) If 1-2 coughs noted with liquids at very start of meal, this is to be expected. However, if frequent coughing, make NPO
(5) Meds crushed in puree
(6) FISH HATCHERY SUPERVISOR to continue to follow
[2024-07-26 09:23] LABS: ALT (SGPT) < 10 U/L (0-35); AST (SGOT) 12 U/L (14-36); Albumin 2.5 g/dl (3.5-5.0); Alkaline Phosphatase 83 U/L (38-126); Blood Urea Nitrogen 24 mg/dl (7-17); Calcium 8.2 mg/dl (8.4-10.2); Carbon Dioxide 17 mmol/L (22-30); Chloride 117 mmol/L (98-107); Estimated Creatinine Clearance 63 ml/min; Glucose 39 mg/dl (70-99); Potassium 3.4 mmol/L (3.5-5.1); Sodium 143 mmol/L (135-145); Total Bilirubin 0.6 mg/dl (0.2-1.3); eGFR > 60.00
[2024-07-26 09:39] LABS: Glucose - Point of Care 82 mg/dl (70-99)
--- NOTE | 2024-07-26 10:13 | CM ---
Patient seen at bedside with parents
Current with [facility] in [facility]
PLAN: Home with [facility] when stable
parents to transport
--- NOTE | 2024-07-26 11:10 | W.PN.ID1 ---
Date of Service
Date of Service: July 26, 2024
Today's Communication
Continue antibiotics.
Assessment / Plan
Gram-negative bee bacteremia
Complicated urinary tract infection
- Cultures with E. coli and Providencia rettgeri
Leukocytosis; now leukopenic
Hx melanoma
Cerebral palsy
Sacral decubiti
Urinary retention
Recommendations:
Continue with Zosyn.
Follow white count and temperature curve.
Await renal ultrasound given bacteremia to assess for any obstructive urinary process.
Further recommendations as additional data is returned.
Chief Complaint
-: Bacteremia
Subjective / Review of Systems
Patient seen and examined. Reports feeling better today.
Review of Systems: No Fever
Vital Signs / Physical Exam
Vital Signs
Vital Signs
Temp Pulse Resp BP Pulse Ox
99.8 F 93 20 131/86 91
07/26/24 07:50 07/26/24 07:50 07/26/24 07:50 07/26/24 07:50 07/26/24 07:50
Physical Exam
Constitutional: No Acute Distress, Comfortable, Chronically Ill and Non-toxic
Eyes: Sclera Anicteric
Cardiovascular: S1/S2; Negative S3/S4
Pulmonary: Non Labored
Gastrointestinal: Non Distended
Genito-Urinary: Lindsey and Clear Urine
Neurological: Awake and Alert
Psychological: Calm
Objective Data
Lab Data
Lab Results
07/26/24 06:26
07/26/24 06:26
Estimated Creat Clear 63 ml/min 07/26/24 06:26
Lactic Acid Cancelled 07/23/24 21:00
Total Bilirubin 0.6 mg/dl (0.2-1.3) 07/26/24 06:26
AST 12 U/L (14-36) L 07/26/24 06:26
ALT < 10 U/L (0-35) 07/26/24 06:26
Alkaline Phosphatase 83 U/L (38-126) 07/26/24 06:26
Most recent labs reviewed.
Micro Results:
07/25/24 09:27 Blood Culture - Preliminary
Blood/Venous No Growth in 24 hours- Final report to follow
07/23/24 18:20 Urine Culture - Preliminary
Urine Escherichia coli
Gram negative bacilli
07/23/24 18:46 Blood Culture - Preliminary
Blood/Venous Gram negative bacilli
Gram Stain - Preliminary
07/23/24 17:11 Blood Culture - Preliminary
Blood/Venous Positive culture in progress
Gram Stain - Preliminary
07/23/24 22:41 Blood Culture - Preliminary
Blood/Venous No Growth in 48 hours- Final report to follow
07/23/24 22:01 Blood Culture - Preliminary
Blood/Venous No Growth in 48 hours- Final report to follow
07/25/24 14:14 Nasal Screen MRSA (PCR) - Final
Nose MRSA not detected - performed by PCR methodology.
Imaging:
Renal ultrasound: Ordered
[2024-07-26 11:24] VITALS: BP 145/90
--- NOTE | 2024-07-26 14:30 | W.PN.HOSP.TC ---
Today's Communication/Plan
-
cont abx
f/u cultures
BHB for possible starvation ketoacidosis
Assessment / Plan
Assessment / Plan
Physical Exam
General: Well Nourished and Comfortable; No Respiratory Distress
HEENT: Anicteric and Moist mucous membranes
Respiratory: Clear and Non Labored Respirations
Cardiac: S1/S2, Regular Rhythm and Tachycardia
GI: Soft and Non Tender
Rectal: Deferred by Provider
Genito-urinary: Suprapubic Tube
Musculoskeletal: No Clubbing, No Cyanosis and Other (Contracted upper extremities; Muscle atrophy of lower extremities)
Skin: Warm and Dry
Neuro: Awake, Alert and Other (Turn head towards my voice)
Psych: Calm
Sepsis secondary to Catheter-Associated UTI, Bacteremia
Gram-negative bacilli, E. coli
-Suprapubic catheter changed in the emergency department
-Continue IVFs
-Switch to Zosyn
-Await urine culture
-F/u Blood Cultures
- ID consulted
-MRSA swab negative
#Anemia
#hemodilution
-appears to be at baseline
#Hypokalemia
-monitor and replete
#Metabolic Acidosis
#?MINGO
-Stop NSS
-Provide LR
-monitor hco3 closely
-stop ibuprofen
� Follow-up with hydroxybutyrate, suspect starvation ketoacidosis
Spastic Cerebral Palsy
-Per family patient usual eats mostly regular food. She is noted to be retaining some potato chip in her mouth upon my evaluation
-Resume modified diet
-Hold gabapentin and baclofen
DVT proph: Lovenox
Code Status: Full Code
Anticipated Discharge: 24 - 48 hours
Subjective/Interval History
-
Date of Service: July 26, 2024
Appears more alert.
Objective Data
-
Labs:
Laboratory Results
07/26/24
06:26
WBC 8.6
Hgb 10.3 L
Hct 30.6 L
Plt Count 105 L
Sodium 143
Potassium 3.4 L
Chloride 117 H
Carbon Dioxide 17 L
BUN 24 H
Creatinine 0.9
Glucose 39 L*
Calcium 8.2 L
Total Bilirubin 0.6
AST 12 L
ALT < 10
Alkaline Phosphatase 83
Vital Signs:
Vital Signs
Temp Pulse Resp BP Pulse Ox
99.1 F 79 20 145/90 92
07/26/24 11:24 07/26/24 11:24 07/26/24 11:24 07/26/24 11:24 07/26/24 11:24
I&O
07/25/24 07/26/24 07/27/24
06:59 06:59 06:59
Intake Total 1300 / 1300
Output Total 300 / 300 850 / 850
Balance 1000 / 1000 -850 / -850
Review of Systems
-
History Source: Patient
All other systems: Not reviewed unless documented
Data Reviewed
-
Labs: Labs Reviewed by me
[2024-07-26] MEDS: TYLENOL ORAL SOLUTION PO (15:13)
[2024-07-26 15:52] VITALS: BP 161/94
[2024-07-26 16:31] LABS: B-Hydroxybutyrate 2.48 mmol/L (0.02-0.27)
[2024-07-26] MEDS: TYLENOL 650 MG PO (16:33)
[2024-07-26] MEDS: LR IV (16:33)
[2024-07-26] MEDS: LOVENOX 40 MG SC (16:35)
[2024-07-26 19:28] VITALS: BP 134/87
[2024-07-26 23:34] VITALS: BP 127/73
[2024-07-27] VITALS (12 sets, daily range): BP systolic 122–152; BP diastolic 44–93
[2024-07-27] MEDS: TYLENOL 650 MG PO ×2 (03:22→19:30)
[2024-07-27] MEDS: ZOSYN 50 IV ×4 (03:23→21:45)
[2024-07-27 07:44] LABS: Hemoglobin 10.5 g/dL (12.0-16.0); Mean Corp Hgb Conc. 33.9 g/dL (33.0-37.0); Mean Corpuscular Hgb 28.5 pg (27.0-31.0); Mean Corpuscular Volume 84.2 fL (81.0-99.0); Mean Platelet Volume 11.3 fL (7.4-10.4); Platelet Count 121 10^3/uL (130-400); Red Blood Cell Count 3.68 10^6/uL (4.20-5.40); Red Cell Dist. Width 15.6 % (11.5-14.5); White Blood Cell Count 8.1 10^3/uL (4.8-10.8)
[2024-07-27 08:22] LABS: ALT (SGPT) < 10 U/L (0-35); AST (SGOT) 11 U/L (14-36); Albumin 2.4 g/dl (3.5-5.0); Alkaline Phosphatase 90 U/L (38-126); Blood Urea Nitrogen 21 mg/dl (7-17); Calcium 7.9 mg/dl (8.4-10.2); Carbon Dioxide 21 mmol/L (22-30); Chloride 116 mmol/L (98-107); Estimated Creatinine Clearance 70 ml/min; Glucose 100 mg/dl (70-99); Potassium 2.7 mmol/L (3.5-5.1); Sodium 143 mmol/L (135-145); Total Bilirubin 0.5 mg/dl (0.2-1.3); Total Protein 4.8 g/dl (6.3-8.2); eGFR > 60.00
[2024-07-27] MEDS: KCL 270 MEQ IV ×2 (09:27→16:30)
--- NOTE | 2024-07-27 10:09 | W.PN.URO.CBU ---
Today's Communication / Plan
-
to op room today
Assessment / Plan
-
sepsis with utoi and stone will attempt stenyting and if stable remove stone but may not evem be able to navigate blader due to high pressyre and sptube changes may need perc tube
Diagnosis
-
Date of Service: July 27, 2024
-
Patient Diagnosis:ngb with sepsis and 1.1 cm rt obstructing stone
Post Op Day:
Subjective
-
poor communication but chart sugest getting better with iv abs
Objective
-
Vital Signs
Temp Pulse Resp BP Pulse Ox
98.3 F 74 18 134/87 94
07/27/24 07:47 07/27/24 07:47 07/27/24 07:47 07/27/24 07:47 07/27/24 07:47
Intake and Output
07/26/24 07/27/24 07/28/24
06:59 06:59 06:59
Output Total 850 / 850 1050 / 1050
Balance -850 / -850 -1050 / -1050
Output:
Urine, Lindsey 400 / 400 1050 / 1050
Suprapubic output 450 / 450
Laboratory Results
07/27/24 06:55
07/27/24 06:55
Review of Systems
-
: Flank Pain and Difficulty Voiding
Physical Exam
-
General - well developed, well nourished, no acute distresswas toxic on arrival
Chest - clear bilaterally
Abdomen - soft, non-tender, positive bowel sounds, no CVAT, no incisional pain or distention
Genitalia - normal
Rectal - normal
Skin - warm & dry with no rash
Neuro -
Extremities - no clubbing, no cyanosis, no edema
Incision - clean, dry
Dressing - clean, dry, intact
Care Review
Data Reviewed
Discussed with: Internal Medicine and Nursing
Ultrasound: Image Pers Reviewed
--- NOTE | 2024-07-27 11:34 | W.PN.HOSP.TC ---
Today's Communication/Plan
-
Continue antibiotics
Follow-up final cultures
Urology consulted
Possible stent today to remove stone versus need for percutaneous nephrostomy tube
K repletion, f/u Mag
Assessment / Plan
Assessment / Plan
Physical Exam
General: Well Nourished and Comfortable; No Respiratory Distress
HEENT: Anicteric and Moist mucous membranes
Respiratory: Clear and Non Labored Respirations
Cardiac: S1/S2, Regular Rhythm and Tachycardia
GI: Soft and Non Tender
Rectal: Deferred by Provider
Genito-urinary: Suprapubic Tube
Musculoskeletal: No Clubbing, No Cyanosis and Other (Contracted upper extremities; Muscle atrophy of lower extremities)
Skin: Warm and Dry
Neuro: Awake, Alert and Other (Turn head towards my voice)
Psych: Calm
Sepsis secondary to Catheter-Associated UTI, Bacteremia
Gram-negative bacilli, E. coli
� Complicated with 1.1 cm calculus in the right renal pelvis
-Suprapubic catheter changed in the emergency department
-Continue IVFs
-Zosyn
-Await urine culture
-F/u Blood Cultures
- ID consulted
-MRSA swab negative
#Moderate right diffuse calyceal dilation
#Obstructing 1.1 cm calculus in the right renal pelvis
�Urology consulted
� Possible stent today; if unable to pass, may need percutaneous nephrostomy
#Anemia
#hemodilution
-appears to be at baseline
#Hypokalemia
-monitor and replete
F/u Mag
#Metabolic Acidosis
# Starvation ketoacidosis
-Stop NSS
-Provide LR
-monitor hco3 closely
-stop ibuprofen
� Now diet is improving, monitor
Spastic Cerebral Palsy
-Per family patient usual eats mostly regular food. She is noted to be retaining some potato chip in her mouth upon my evaluation
-Resume modified diet
-Hold gabapentin and baclofen
DVT proph: Lovenox�holding for procedure
Code Status: Full Code
Total time spent on today's encounter was 50 minutes which included time spent in counseling the patient/family regarding diagnosis and treatment plan as listed above, goals of care, and symptom management. Case was discussed with nursing staff,
specialists, and care coordinators/case management. All labs and imaging personally reviewed by me. Remainder the time spent in detailed review of previous records, lab data, imaging, and other medical provider documentation.
Anticipated Discharge: > 48 hours
Subjective/Interval History
-
Date of Service: July 27, 2024
Renal ultrasound with evidence of moderate right diffuse calyceal dilation, 1.1 cm obstructing calculus in the right renal pelvis
Objective Data
-
Labs:
Laboratory Results
07/27/24
06:55
WBC 8.1
Hgb 10.5 L
Hct 31.0 L
Plt Count 121 L
Sodium 143
Potassium 2.7 L*
Chloride 116 H
Carbon Dioxide 21 L
BUN 21 H
Creatinine 0.8
Glucose 100 H
Calcium 7.9 L
Total Bilirubin 0.5
AST 11 L
ALT < 10
Alkaline Phosphatase 90
Vital Signs:
Vital Signs
Temp Pulse Resp BP Pulse Ox
98.3 F 74 18 134/87 94
07/27/24 07:47 07/27/24 07:47 07/27/24 07:47 07/27/24 07:47 07/27/24 07:47
I&O
07/26/24 07/27/24 07/28/24
06:59 06:59 06:59
Output Total 850 / 850 1050 / 1050
Balance -850 / -850 -1050 / -1050
Review of Systems
-
History Source: Patient
All other systems: Not reviewed unless documented
Data Reviewed
-
Ultrasound: Report Reviewed by me
Labs: Labs Reviewed by me
[2024-07-27] MEDS: LR 1000 IV (12:06)
[2024-07-27 12:20] LABS: Magnesium 1.9 mg/dl (1.6-2.3)
--- NOTE | 2024-07-27 13:03 | PTCARENOTE ---
pt taken to OR by RN.
--- NOTE | 2024-07-27 13:05 | W.PN.ID1 ---
Date of Service
Date of Service: July 27, 2024
Today's Communication
Continue antibiotics.
Assessment / Plan
Gram-negative bee bacteremia
Complicated urinary tract infection
- Cultures with E. coli and Providencia rettgeri
Obstructive uropathy with right renal nephrolithiasis
Leukocytosis; now leukopenic
Hx melanoma
Cerebral palsy
Sacral decubiti
Urinary retention
Recommendations:
Continue with Zosyn.
Follow white count and temperature curve.
Patient tentatively for OR for stenting today.
����������������������������������������������������������
Chief Complaint
-: UTI and Bacteremia
Subjective / Review of Systems
Review of Systems: No Fever
Vital Signs / Physical Exam
Vital Signs
Vital Signs
Temp Pulse Resp BP Pulse Ox
98.7 F 74 18 146/90 95
07/27/24 12:00 07/27/24 12:00 07/27/24 12:00 07/27/24 12:00 07/27/24 12:00
Physical Exam
Constitutional: No Acute Distress, Comfortable, Chronically Ill and Non-toxic
Eyes: Sclera Anicteric
Pulmonary: Non Labored
Gastrointestinal: Non Distended
Genito-Urinary: Lindsey and Clear Urine
Neurological: Awake and Alert
Psychological: Calm
Objective Data
Lab Data
Lab Results
07/27/24 06:55
Estimated Creat Clear 70 ml/min 07/27/24 06:55
Lactic Acid Cancelled 07/23/24 21:00
Total Bilirubin 0.5 mg/dl (0.2-1.3) 07/27/24 06:55
AST 11 U/L (14-36) L 07/27/24 06:55
ALT < 10 U/L (0-35) 07/27/24 06:55
Alkaline Phosphatase 90 U/L (38-126) 07/27/24 06:55
Most recent labs reviewed.
Micro Results:
07/25/24 09:27 Blood Culture - Preliminary
Blood/Venous No Growth in 48 hours- Final report to follow
07/23/24 22:01 Blood Culture - Preliminary
Blood/Venous No Growth in 72 hours- Final report to follow
07/23/24 18:46 Blood Culture - Preliminary
Blood/Venous Gram negative bacilli
Gram Stain - Preliminary
07/23/24 18:20 Urine Culture - Final
Urine Providencia rettgeri
Escherichia coli
07/23/24 22:41 Blood Culture - Preliminary
Blood/Venous No Growth in 72 hours- Final report to follow
07/23/24 17:11 Blood Culture - Preliminary
Blood/Venous Positive culture in progress
Gram Stain - Preliminary
07/25/24 14:14 Nasal Screen MRSA (PCR) - Final
Nose MRSA not detected - performed by PCR methodology.
Imaging:
07/26/2024 Renal ultrasound: Suprapubic catheter present, with only a small amount of urine in the bladder. Echogenic debris is noted. There is moderate right diffuse calyceal dilatation with evidence for a 1.1 obstructing calculus in the right
renal pelvis.
--- NOTE | 2024-07-27 14:58 | W.SUR.POST ---
Surgical Immediate Post Op
Note
Pre Op Diagnosis: rt upj stone with obstruction sepsis
Post Op Diagnosis: same and multiple bladder stones and other kidney tones
Procedure Performed:
rt urteroscpy lasr basket extraction stent rgp
Primary Surgeon: tony
Secondary Surgeons:
Anesthesia: general dr kennedy
Estimated Blood Loss: 5cc
Fluids: nss
Drains/Shunts:
6 fr 24 cm jj stent
Specimens/Cultures:
stone
Doppler/Duplex/Angio (Y/N):
Complications: 0
Operative Findings:multole bladder leatha 1 cm rt upj tone lasered but over 10 smaller non obdtrcting stones also
[2024-07-27 15:54] LABS: Blood Urea Nitrogen 16 mg/dl (7-17); Calcium 7.2 mg/dl (8.4-10.2); Carbon Dioxide 20 mmol/L (22-30); Chloride 114 mmol/L (98-107); Estimated Creatinine Clearance 80 ml/min; Glucose 100 mg/dl (70-99); Potassium 3.2 mmol/L (3.5-5.1); Sodium 141 mmol/L (135-145); eGFR > 60.00
--- NOTE | 2024-07-27 15:57 | PTCARENOTE ---
Returned from OR
[2024-07-28 02:59] VITALS: BP 149/92
[2024-07-28] MEDS: ZOSYN 50 IV ×4 (03:35→21:23)
[2024-07-28] MEDS: LR 1000 IV ×2 (03:35→17:08)
[2024-07-28 07:07] LABS: Hematocrit 32.2 % (37.0-47.0); Hemoglobin 10.9 g/dL (12.0-16.0); Mean Corp Hgb Conc. 33.9 g/dL (33.0-37.0); Mean Corpuscular Hgb 28.2 pg (27.0-31.0); Mean Corpuscular Volume 83.4 fL (81.0-99.0); Platelet Count 125 10^3/uL (130-400); Red Blood Cell Count 3.86 10^6/uL (4.20-5.40); Red Cell Dist. Width 15.9 % (11.5-14.5); White Blood Cell Count 10.1 10^3/uL (4.8-10.8)
[2024-07-28 07:16] LABS: ALT (SGPT) < 10 U/L (0-35); AST (SGOT) 12 U/L (14-36); Albumin 2.6 g/dl (3.5-5.0); Alkaline Phosphatase 75 U/L (38-126); Blood Urea Nitrogen 18 mg/dl (7-17); Calcium 7.6 mg/dl (8.4-10.2); Carbon Dioxide 21 mmol/L (22-30); Chloride 115 mmol/L (98-107); Estimated Creatinine Clearance 70 ml/min; Glucose 131 mg/dl (70-99); Potassium 3.9 mmol/L (3.5-5.1); Sodium 143 mmol/L (135-145); Total Bilirubin 0.5 mg/dl (0.2-1.3); Total Protein 5.2 g/dl (6.3-8.2); eGFR > 60.00
[2024-07-28 07:30] VITALS: BP 121/75
[2024-07-28] MEDS: TYLENOL 650 MG PO ×2 (08:48→16:25)
--- NOTE | 2024-07-28 09:37 | CM ---
CM reviewed chart, patient seen in OR yesterday. Patient remains on IV antibiotics. Plan return home with parents, [facility], when stable. CM will continue to follow for all discharge planning needs.
Plan; home with parents, [facility] when stable.
--- NOTE | 2024-07-28 10:47 | PTOTSP ---
Speech Pathology
Dysphagia Treatment
Pt seen for dysphagia tx s/p general anesthesia for ureteroscopy, laser litho, and stent. Tolerating pureed diet and thin liquids per chart and RN. Completed trials of thin liquids and puree this date with slow bolus formation, delayed ap transfer,
and mild oral residue observed. No overt s/s of aspiration observed. Aspiration risk remains increased 2/2 dependence on feeding and oral care, and current admission for sepsis/UTI.
Maintain recommendations as copied below:
(1) IDDSI Level 4 (Puree) and Thin Liquids. Pt will do best with more thin purees, such as soups and applesauce as opposed to pureed meats
(2) Aspiration precautions: sit upright, slow rate, single straw sips (pinch straw)
(3) Ensure pt clears food from oral cavity. If she does not, complete oral suctioning and defer that item
(4) If 1-2 coughs noted with liquids at very start of meal, this is to be expected. However, if frequent coughing, make NPO
(5) Meds crushed in puree
(6) NUCLEAR PLANT TECHNICAL ADVISOR to continue to follow re: to assess diet level tolerance
[2024-07-28 11:30] VITALS: BP 101/62
--- NOTE | 2024-07-28 11:58 | W.PN.HOSP.TC ---
Today's Communication/Plan
-
see A/P
Assessment / Plan
Assessment / Plan
A/P:
# Sepsis POA secondary to Catheter-Associated UTI and associated bacteremia
# Obstructive uropathy with right renal nephrolithiasis
Suprapubic catheter changed in the emergency department
urine culture positive for Providencia rettgeri and E coli
Blood culture positive for Providencia rettgeri, repeat blood culture negative from 07/23/2024
s/p OR 07/28 with R ureteroscopy, laser, and stent
noted gross hematuria, cont to monitor
Cont Zosyn per ID
# Anemia 2/2 hemodilution
Hgb stable at 10.9
# Hypokalemia, resolved
# Metabolic Acidosis, improved
# Starvation ketoacidosis
# Spastic Cerebral Palsy
appears to be non-verbal at baseline
Per family patient usual eats mostly regular food. She is noted to be retaining some potato chip in her mouth on evaluation
Resumed modified diet with pureed
Hold gabapentin and baclofen
DVT proph: Lovenox� holding luz-op and in setting of gross hematuria, start SCD
Code Status: Full Code
Anticipated Discharge: 24 - 48 hours
Subjective/Interval History
-
Date of Service: July 28, 2024
Objective Data
-
Labs:
Laboratory Results
07/27/24 07/28/24
23:59 06:31
WBC 10.1
Hgb 10.9 L
Hct 32.2 L
Plt Count 125 L
Sodium Cancelled 143
Potassium Cancelled 3.9
Chloride Cancelled 115 H
Carbon Dioxide Cancelled 21 L
BUN Cancelled 18 H
Creatinine Cancelled 0.8
Glucose Cancelled 131 H
Calcium Cancelled 7.6 L
Total Bilirubin 0.5
AST 12 L
ALT < 10
Alkaline Phosphatase 75
Vital Signs:
Vital Signs
Temp Pulse Resp BP Pulse Ox
36.5 C 81 16 101/62 95
07/28/24 11:30 07/28/24 11:30 07/28/24 11:30 07/28/24 11:30 07/28/24 11:30
I&O
07/27/24 07/28/24 07/29/24
06:59 06:59 06:59
Intake Total 2240 / 2240
Output Total 1050 / 1050 850 / 850
Balance -1050 / -1050 1390 / 1390
Review of Systems
-
Unable to obtain full review of systems at this time due to: Patient Non-verbal
Physical Exam
-
General: Well Nourished, No Apparent Distress and Comfortable; Negative Respiratory Distress
HEENT: Normocephalic, Atraumatic, Nose Appears Normal and Ears Appear Normal; Negative Oxygen
Respiratory: Clear to Auscultation and Non Labored Respirations; Negative Accessory Resp Muscle Use
Cardiac: Regular Rhythm and S1/S2
GI: Soft, Nontender, Nondistended and Normal Bowel Sounds
Genito-urinary: Supra Pubic Tube
Musculoskeletal: Other (Contracted upper extremities; Muscle atrophy of lower extremities)
Skin: Warm and Dry
Neuro: Awake and Alert
Psych: Calm; Negative Intact Judgement/Insight
Data Reviewed
-
Labs: Labs Reviewed by me
--- NOTE | 2024-07-28 14:24 | W.PN.ID1 ---
Date of Service
Date of Service: July 28, 2024
Today's Communication
Continue antibiotics.
Assessment / Plan
Bacteremia with Providencia rettgeri
Complicated urinary tract infection
- Cultures with E. coli and Providencia rettgeri
Obstructive uropathy with right renal nephrolithiasis
Suspected pyelonephritis
Leukocytosis; now leukopenic
Hx melanoma
Cerebral palsy
Sacral decubiti
Urinary retention
Recommendations:
Continue with Zosyn.
Follow white count and temperature curve.
Will likely require a 10 to 14-day course of antibiotics. Possible transition to oral therapy at time of discharge.
����������������������������������������������������������
Chief Complaint
-: UTI and Bacteremia
Subjective / Review of Systems
Review of Systems: No Fever and No Chills
Vital Signs / Physical Exam
Vital Signs
Vital Signs
Temp Pulse Resp BP Pulse Ox
97.7 F 81 16 101/62 95
07/28/24 11:30 07/28/24 11:30 07/28/24 11:30 07/28/24 11:30 07/28/24 11:30
Physical Exam
Constitutional: No Acute Distress, Comfortable, Chronically Ill and Non-toxic
Eyes: Sclera Anicteric
Pulmonary: Non Labored
Gastrointestinal: Non Distended
Genito-Urinary: Lindsey and Clear Urine; Negative Turbid Urine or Hematuria
Extremities: Negative Erythema
Neurological: Awake and Alert
Psychological: Calm
Objective Data
Lab Data
Lab Results
07/28/24 06:31
07/28/24 06:31
Estimated Creat Clear 70 ml/min 07/28/24 06:31
Lactic Acid Cancelled 07/23/24 21:00
Total Bilirubin 0.5 mg/dl (0.2-1.3) 07/28/24 06:31
AST 12 U/L (14-36) L 07/28/24 06:31
ALT < 10 U/L (0-35) 07/28/24 06:31
Alkaline Phosphatase 75 U/L (38-126) 07/28/24 06:31
Most recent labs reviewed.
Micro Results:
07/23/24 17:11 Blood Culture - Final
Blood/Venous Gram Stain - Final
07/23/24 22:01 Blood Culture - Preliminary
Blood/Venous No Growth in 4 days- Final report to follow
07/23/24 18:46 Blood Culture - Final
Blood/Venous Providencia rettgeri
Gram Stain - Final
07/25/24 09:27 Blood Culture - Preliminary
Blood/Venous No Growth in 72 hours- Final report to follow
07/23/24 22:41 Blood Culture - Preliminary
Blood/Venous No Growth in 4 days- Final report to follow
07/23/24 18:20 Urine Culture - Final
Urine Providencia rettgeri
Escherichia coli
07/25/24 14:14 Nasal Screen MRSA (PCR) - Final
Nose MRSA not detected - performed by PCR methodology.
Urine Culture Final 07/23/2024
CC: Greater than 100,000 CFU/ML Providencia rettgeri
CC: 100,000 CFU/ML Escherichia coli
Organism 1 Providencia rettgeri
Organism 2 Escherichia coli
P.RETTGERI E.COLI
M.I.C. RX M.I.C. RX
--------- --- --------- ---
Amoxicillin/Potas. Clavulanate >16/8 R <=8/4 S
Ampicillin >16 R <=8 S
Ampicillin/Sulbactam 16/8 I <=4/2 S
Aztreonam <=4 S <=4 S
Cefazolin >16 R <=2 S
Cefepime <=2 S
Ceftriaxone <=1 S
Ertapenem <=0.5 S <=0.5 S
Ciprofloxacin 0.5 I 0.5 I
Gentamicin <=2 S <=2 S
Meropenem <=1 S <=1 S
Nitrofurantoin-Urine Only >64 R <=32 S
Piperacillin/Tazobactam <=8 S <=8 S
Tetracycline >8 R <=4 S
Tobramycin <=2 S <=2 S
Trimethoprim/Sulfamethoxazole <=2/38 S <=2/38 S
Imaging:
07/26/2024 Renal ultrasound: Suprapubic catheter present, with only a small amount of urine in the bladder. Echogenic debris is noted. There is moderate right diffuse calyceal dilatation with evidence for a 1.1 obstructing calculus in the right
renal pelvis.
[2024-07-28 15:11] VITALS: BP 118/72
--- NOTE | 2024-07-28 19:02 | PTCARENOTE ---
dr Sadler aware that pt's urine has become more bloody. ordered to irrigate her suprapubic tube. Rn made him aware that it irrigated easily and no clots were present. Gave phone order to irrigate prn clots and to be sure a cbc is ordered in the
morning.
[2024-07-28 19:45] VITALS: BP 114/73
[2024-07-28 23:30] VITALS: BP 95/66
[2024-07-29 03:29] VITALS: BP 146/87
[2024-07-29] MEDS: ZOSYN 50 IV ×4 (03:39→21:08)
[2024-07-29] MEDS: TYLENOL 650 MG PO ×2 (03:39→18:58)
[2024-07-29] MEDS: LR 1000 IV (06:02)
[2024-07-29 07:59] VITALS: BP 137/77
[2024-07-29 08:32] LABS: Hematocrit 33.8 % (37.0-47.0); Hemoglobin 11.1 g/dL (12.0-16.0); Mean Corp Hgb Conc. 32.8 g/dL (33.0-37.0); Mean Corpuscular Hgb 28.2 pg (27.0-31.0); Mean Platelet Volume 10.4 fL (7.4-10.4); Platelet Count 184 10^3/uL (130-400); Red Blood Cell Count 3.93 10^6/uL (4.20-5.40); Red Cell Dist. Width 15.9 % (11.5-14.5); White Blood Cell Count 13.1 10^3/uL (4.8-10.8)
[2024-07-29 08:58] LABS: Blood Urea Nitrogen 19 mg/dl (7-17); Calcium 8.3 mg/dl (8.4-10.2); Carbon Dioxide 25 mmol/L (22-30); Chloride 112 mmol/L (98-107); Estimated Creatinine Clearance 70 ml/min; Glucose 106 mg/dl (70-99); Potassium 3.5 mmol/L (3.5-5.1); Sodium 142 mmol/L (135-145); eGFR > 60.00
--- NOTE | 2024-07-29 09:11 | W.PN.HOSP.TC ---
Today's Communication/Plan
-
see A/P
Assessment / Plan
Assessment / Plan
A/P:
# Sepsis POA secondary to Catheter-Associated UTI and associated bacteremia
# Obstructive uropathy with right renal nephrolithiasis
Suprapubic catheter changed in the emergency department
urine culture positive for Providencia rettgeri and E coli
Blood culture positive for Providencia rettgeri, repeat blood culture negative from 07/23/2024
s/p OR 07/28 with R ureteroscopy, laser, and stent
noted gross hematuria, cont to monitor
Cont Zosyn per ID
# Anemia 2/2 hemodilution
Hgb stable at 11.1 today
# Hypokalemia, resolved
# Metabolic Acidosis, improved
# Starvation ketoacidosis
# Spastic Cerebral Palsy
appears to be non-verbal at baseline
Per family patient usual eats mostly regular food. She is noted to be retaining some potato chip in her mouth on evaluation
Resumed modified diet with pureed
Hold gabapentin and baclofen
DVT proph: Lovenox� holding luz-op and in setting of gross hematuria, start SCD
Code Status: Full Code
called mother twice to update, calls not answered
Anticipated Discharge: 24 - 48 hours
Subjective/Interval History
-
Date of Service: July 29, 2024
Objective Data
-
Labs:
Laboratory Results
07/29/24
08:12
WBC 13.1 H
Hgb 11.1 L
Hct 33.8 L
Plt Count 184 D
Sodium 142
Potassium 3.5
Chloride 112 H
Carbon Dioxide 25
BUN 19 H
Creatinine 0.8
Glucose 106 H
Calcium 8.3 L
Vital Signs:
Vital Signs
Temp Pulse Resp BP Pulse Ox
36.4 C 60 16 137/77 99
07/29/24 07:59 07/29/24 07:59 07/29/24 07:59 07/29/24 07:59 07/29/24 07:59
I&O
07/28/24 07/29/24 07/30/24
06:59 06:59 06:59
Intake Total 2240 / 2240 2660 / 2660
Output Total 850 / 850 750 / 750
Balance 1390 / 1390 1909 / 1909
Review of Systems
-
Unable to obtain full review of systems at this time due to: Patient Non-verbal
Physical Exam
-
General: Well Nourished, No Apparent Distress and Comfortable; Negative Respiratory Distress
HEENT: Normocephalic, Atraumatic, Nose Appears Normal and Ears Appear Normal; Negative Oxygen
Respiratory: Clear to Auscultation and Non Labored Respirations; Negative Accessory Resp Muscle Use
Cardiac: Regular Rhythm and S1/S2
GI: Soft, Nontender, Nondistended and Normal Bowel Sounds
Genito-urinary: Supra Pubic Tube
Musculoskeletal: Other (Contracted upper extremities; Muscle atrophy of lower extremities)
Skin: Warm and Dry
Neuro: Awake
Psych: Calm; Negative Intact Judgement/Insight
Data Reviewed
-
Labs: Labs Reviewed by me
[2024-07-29] MEDS: KCL 270 MEQ IV (09:50)
[2024-07-29] MEDS: FLUSH (NSS) 2 FLUSH IV (09:51)
--- NOTE | 2024-07-29 10:56 | W.PN.URO.CBU ---
Today's Communication / Plan
-
hemariria is expected home when ok by hospitalist
Assessment / Plan
-
sepsis with uti and stone and sp tube I mproved and staone eradicated but pt has multle bilater renal and some bladder stiones to be addreess post discharge agfte rrecuperating from this sepsis homw with sp tube when medicalobjectives met
Diagnosis
-
Date of Service: July 29, 2024
-
Patient Diagnosis:
Post Op Day:
Patient Diagnosis:ngb with sepsis and 1.1 cm rt obstructing stone
Post Op Day:
Subjective
-
non verbal appeared comfortble non toxc wirh expected hematuria
Objective
-
Vital Signs
Temp Pulse Resp BP Pulse Ox
97.6 F 60 16 137/77 99
07/29/24 07:59 07/29/24 07:59 07/29/24 07:59 07/29/24 07:59 07/29/24 07:59
Intake and Output
07/28/24 07/29/24 07/30/24
06:59 06:59 06:59
Intake Total 2240 / 2240 2660 / 2660
Output Total 850 / 850 750 / 750
Balance 1390 / 1390 1910 / 1910
Intake:
Oral fluids 660 / 660
IV fluids (Total) 1440 / 1440 1800 / 1800
Lr 1,000 ml @ 75 mls/hr IV . 40 / 40
[id number] [facility] Rx#:[id number]
IV piggybacks 800 / 800 200 / 200
Output:
Urine, Lindsey 450 / 450
Urine, Voided 300 / 300
Suprapubic output 850 / 850
Other:
Number of approximated MODERATE 2
amounts of urine
How many times incontinent 1
SMALL amount urine
Laboratory Results
07/29/24 08:12
07/29/24 08:12
Review of Systems
-
Unable to obtain full review of systems at this time due to: Patient Non-verbal
: Difficulty Voiding and Bleeding
Physical Exam
-
General - well developed, well nourished, no acute distress
Chest - clear bilaterally
Abdomen - soft, non-tender, positive bowel sounds, no CVAT, no incisional pain or distention
Genitalia - normal
Rectal - normal
Skin - warm & dry with no rash
Neuro - AOx3, no motor deficits
Extremities - no clubbing, no cyanosis, no edema
Incision - clean, dry
Dressing - clean, dry, intact
Care Review
Data Reviewed
Discussed with: Nursing
CT Scan: Image Pers Reviewed
[2024-07-29 11:00] VITALS: BP 146/85
--- NOTE | 2024-07-29 11:55 | CM ---
Chart reviewed and patient to return to home with parents when stable, and [facility].
Plan; Home with parents and [facility].
[2024-07-29 16:19] VITALS: BP 142/80
--- NOTE | 2024-07-29 16:20 | PTOTSP ---
Dysphagia Tx
Patient presents with signs concerning for at least mild-moderate oral dysphagia likely related to acute on chronic factors (sepsis/UTI and baseline CP).
Recommend:
(1) IDDSI Level 5 (Minced/moist) and Thin Liquids.
(2) Aspiration precautions: sit upright, slow rate, single straw sips (pinch straw)
(3) Ensure pt clears food from oral cavity. If she does not, complete oral suctioning and defer that item
(4) If 1-2 coughs noted with liquids at very start of meal, this is to be expected. However, if frequent coughing, make NPO
(5) Meds crushed in puree
(6) [employer] to continue to follow re: to assess diet level tolerance
--- NOTE | 2024-07-29 16:24 | W.PN.ID1 ---
Date of Service
Date of Service: July 29, 2024
Today's Communication
Continue antibiotics.
Assessment / Plan
Bacteremia with Providencia rettgeri
Complicated urinary tract infection
- Cultures with E. coli and Providencia rettgeri
Obstructive uropathy with right renal nephrolithiasis
Suspected pyelonephritis
Leukocytosis; now leukopenic
Hx melanoma
Cerebral palsy
Sacral decubiti
Urinary retention
Recommendations:
Continue with Zosyn.
Follow white count and temperature curve. Today's white count noted to be elevated. Will continue to trend.
Will likely require a 10 to 14-day course of antibiotics. Possible transition to oral therapy at time of discharge.
����������������������������������������������������������
Chief Complaint
-: UTI and Bacteremia
Subjective / Review of Systems
Review of Systems: No Fever and No Chills
Vital Signs / Physical Exam
Vital Signs
Vital Signs
Temp Pulse Resp BP Pulse Ox
98.8 F 86 18 142/80 99
07/29/24 15:00 07/29/24 15:00 07/29/24 15:00 07/29/24 16:19 07/29/24 15:00
Physical Exam
Constitutional: No Acute Distress, Comfortable, Chronically Ill and Non-toxic
Eyes: Sclera Anicteric
Pulmonary: Non Labored
Gastrointestinal: Non Distended
Genito-Urinary: Lindsey and Clear Urine; Negative Turbid Urine or Hematuria
Extremities: Negative Erythema
Neurological: Awake and Alert
Psychological: Calm
Objective Data
Lab Data
Lab Results
07/29/24 08:12
07/29/24 08:12
Estimated Creat Clear 70 ml/min 07/29/24 08:12
Lactic Acid Cancelled 07/23/24 21:00
Total Bilirubin 0.5 mg/dl (0.2-1.3) 07/28/24 06:31
AST 12 U/L (14-36) L 07/28/24 06:31
ALT < 10 U/L (0-35) 07/28/24 06:31
Alkaline Phosphatase 75 U/L (38-126) 07/28/24 06:31
Most recent labs reviewed.
Micro Results:
07/25/24 09:27 Blood Culture - Preliminary
Blood/Venous No Growth in 4 days- Final report to follow
07/23/24 22:01 Blood Culture - Final
Blood/Venous No Growth - Final Report
07/23/24 22:41 Blood Culture - Final
Blood/Venous No Growth - Final Report
07/23/24 17:11 Blood Culture - Final
Blood/Venous Gram Stain - Final
07/23/24 18:46 Blood Culture - Final
Blood/Venous Providencia rettgeri
Gram Stain - Final
07/23/24 18:20 Urine Culture - Final
Urine Providencia rettgeri
Escherichia coli
07/25/24 14:14 Nasal Screen MRSA (PCR) - Final
Nose MRSA not detected - performed by PCR methodology.
Urine Culture Final 07/23/2024
CC: Greater than 100,000 CFU/ML Providencia rettgeri
CC: 100,000 CFU/ML Escherichia coli
Organism 1 Providencia rettgeri
Organism 2 Escherichia coli
P.RETTGERI E.COLI
M.I.C. RX M.I.C. RX
--------- --- --------- ---
Amoxicillin/Potas. Clavulanate >16/8 R <=8/4 S
Ampicillin >16 R <=8 S
Ampicillin/Sulbactam 16/8 I <=4/2 S
Aztreonam <=4 S <=4 S
Cefazolin >16 R <=2 S
Cefepime <=2 S
Ceftriaxone <=1 S
Ertapenem <=0.5 S <=0.5 S
Ciprofloxacin 0.5 I 0.5 I
Gentamicin <=2 S <=2 S
Meropenem <=1 S <=1 S
Nitrofurantoin-Urine Only >64 R <=32 S
--> Piperacillin/Tazobactam <=8 S <=8 S
Tetracycline >8 R <=4 S
Tobramycin <=2 S <=2 S
Trimethoprim/Sulfamethoxazole <=2/38 S <=2/38 S
Imaging:
07/26/2024 Renal ultrasound: Suprapubic catheter present, with only a small amount of urine in the bladder. Echogenic debris is noted. There is moderate right diffuse calyceal dilatation with evidence for a 1.1 obstructing calculus in the right
renal pelvis.
[2024-07-29] MEDS: LOVENOX 40 MG SC (16:28)
[2024-07-29 20:17] VITALS: BP 140/78
[2024-07-29 22:54] VITALS: BP 121/72
[2024-07-30] MEDS: LR 1000 IV (02:01)
[2024-07-30 02:55] VITALS: BP 130/85
[2024-07-30] MEDS: ZOSYN 50 IV ×4 (04:50→21:18)
[2024-07-30] MEDS: TYLENOL 650 MG PO ×3 (06:23→20:36)
[2024-07-30 07:00] VITALS: BP 148/80
[2024-07-30 07:33] LABS: Blood Urea Nitrogen 13 mg/dl (7-17); Calcium 8.4 mg/dl (8.4-10.2); Carbon Dioxide 28 mmol/L (22-30); Chloride 111 mmol/L (98-107); Estimated Creatinine Clearance 80 ml/min; Glucose 73 mg/dl (70-99); Potassium 4.1 mmol/L (3.5-5.1); Sodium 142 mmol/L (135-145); eGFR > 60.00
[2024-07-30 07:34] LABS: Hematocrit 32.6 % (37.0-47.0); Hemoglobin 10.8 g/dL (12.0-16.0); Mean Corp Hgb Conc. 33.1 g/dL (33.0-37.0); Mean Corpuscular Hgb 28.3 pg (27.0-31.0); Mean Corpuscular Volume 85.3 fL (81.0-99.0); Mean Platelet Volume 10.8 fL (7.4-10.4); Platelet Count 254 10^3/uL (130-400); Red Blood Cell Count 3.82 10^6/uL (4.20-5.40); Red Cell Dist. Width 15.9 % (11.5-14.5); White Blood Cell Count 10.7 10^3/uL (4.8-10.8)
--- NOTE | 2024-07-30 09:17 | W.PN.HOSP.TC ---
Today's Communication/Plan
-
see A/P
Assessment / Plan
Assessment / Plan
A/P:
# Sepsis POA secondary to Catheter-Associated UTI and associated bacteremia
# Obstructive uropathy with right renal nephrolithiasis
Suprapubic catheter changed in the emergency department
urine culture positive for Providencia rettgeri and E coli
Blood culture positive for Providencia rettgeri, repeat blood culture negative from 07/23/2024
s/p OR 07/28 with R ureteroscopy, laser, and stent
noted gross hematuria, cont to monitor
Cont Zosyn per ID
# Anemia 2/2 hemodilution
Hgb today at 10.8
# Hypokalemia, resolved
# Metabolic Acidosis, improved
# Starvation ketoacidosis
# Spastic Cerebral Palsy
appears to be non-verbal at baseline
Per family patient usual eats mostly regular food. She is noted to be retaining some potato chip in her mouth on evaluation
Resumed modified diet with pureed
Hold gabapentin and baclofen
DVT proph: Lovenox� holding luz-op and in setting of gross hematuria, started SCD
Code Status: Full Code
DW sister at bedside
Anticipated Discharge: 24 - 48 hours
Subjective/Interval History
-
Date of Service: July 30, 2024
Objective Data
-
Labs:
Laboratory Results
07/30/24
06:23
WBC 10.7
Hgb 10.8 L
Hct 32.6 L
Plt Count 254 D
Sodium 142
Potassium 4.1
Chloride 111 H
Carbon Dioxide 28
BUN 13
Creatinine 0.7
Glucose 73
Calcium 8.4
Vital Signs:
Vital Signs
Temp Pulse Resp BP Pulse Ox
36.8 C 61 18 148/80 94
07/30/24 07:00 07/30/24 07:00 07/30/24 07:00 07/30/24 07:00 07/30/24 07:00
I&O
07/29/24 07/30/24 07/31/24
06:59 06:59 06:59
Intake Total 2660 / 2660 1670 / 1670
Output Total 750 / 750 3400 / 3400
Balance 1909 / 1909 -0 / -1730
Review of Systems
-
Unable to obtain full review of systems at this time due to: Patient Non-verbal
Physical Exam
-
General: Well Nourished, No Apparent Distress and Comfortable; Negative Respiratory Distress
HEENT: Normocephalic, Atraumatic, Nose Appears Normal and Ears Appear Normal; Negative Oxygen
Respiratory: Clear to Auscultation and Non Labored Respirations; Negative Accessory Resp Muscle Use
Cardiac: Regular Rhythm and S1/S2
GI: Soft, Nontender, Nondistended and Normal Bowel Sounds
Genito-urinary: Supra Pubic Tube
Musculoskeletal: Other (Contracted upper extremities; Muscle atrophy of lower extremities)
Skin: Warm and Dry
Neuro: Awake
Psych: Calm; Negative Intact Judgement/Insight
Data Reviewed
-
Labs: Labs Reviewed by me
[2024-07-30] MEDS: LR IV (09:31)
[2024-07-30 11:06] VITALS: BP 138/78
--- NOTE | 2024-07-30 14:16 | W.PN.URO.CBU ---
Today's Communication / Plan
-
per hositalist
Assessment / Plan
-
sepsis with uti and stone and sp tube I mproved and staone eradicated but pt has multle bilater renal and some bladder stiones to be addreess post discharge agfte rrecuperating from this sepsis homw with sp tube when medicalobjectives met
Diagnosis
-
Date of Service: July 30, 2024
-
Patient Diagnosis:
Post Op Day:
Patient Diagnosis:
Post Op Day:
Patient Diagnosis:ngb with sepsis and 1.1 cm rt obstructing stone
Post Op Day:
Subjective
-
no new gu findings
Objective
-
Vital Signs
Temp Pulse Resp BP Pulse Ox
98.2 F 68 16 138/78 98
07/30/24 11:06 07/30/24 11:06 07/30/24 11:06 07/30/24 11:06 07/30/24 11:06
Intake and Output
07/29/24 07/30/24 07/31/24
06:59 06:59 06:59
Intake Total 2660 / 2660 1670 / 1670
Output Total 750 / 750 3400 / 3400
Balance 1910 / 1910 -1730 / -1730
Intake:
Oral fluids 660 / 660 300 / 300
IV fluids (Total) 1800 / 1800 900 / 900
IV piggybacks 200 / 200 470 / 470
Output:
Urine, Lindsey 450 / 450 2000 / 2000
Urine, Voided 300 / 300
Suprapubic output 1400 / 1400
Other:
How many times incontinent 1
SMALL amount urine
Laboratory Results
07/30/24 06:23
07/30/24 06:23
Review of Systems
-
: Difficulty Voiding and Dark Urine
Physical Exam
-
General - well developed, well nourished, no acute distress
Chest - clear bilaterally
Abdomen - soft, non-tender, positive bowel sounds, no CVAT, no incisional pain or distention
Genitalia - normal
Rectal - normal
Skin - warm & dry with no rash
Neuro - AOx3, no motor deficits
Extremities - no clubbing, no cyanosis, no edema
Incision - clean, dry
Dressing - clean, dry, intact
Care Review
Data Reviewed
Discussed with: Nursing and Family
--- NOTE | 2024-07-30 14:52 | CM ---
Chart reviewed and patient's plan is to home with [facility] when stable.
Plan; Home with [facility].
[2024-07-30 15:00] VITALS: BP 158/93
[2024-07-30] MEDS: LOVENOX 40 MG SC (17:37)
--- NOTE | 2024-07-30 18:07 | W.PN.ID1 ---
Date of Service
Date of Service: July 30, 2024
Today's Communication
Continue antibiotics. See below�
Assessment / Plan
Bacteremia with Providencia rettgeri
Complicated urinary tract infection
- Cultures with E. coli and Providencia rettgeri
Obstructive uropathy with right renal nephrolithiasis
Suspected pyelonephritis
Leukocytosis; now leukopenic
Hx melanoma
Cerebral palsy
Sacral decubiti
Urinary retention
Recommendations:
Continue with Zosyn while inpatient.
At discharge, transition to cefdinir 300 mg p.o. twice daily, to continue through 08/07/2024
Follow white count and temperature curve. Today's white count noted to be improved.
����������������������������������������������������������
Chief Complaint
-: UTI and Bacteremia
Subjective / Review of Systems
Review of Systems: No Fever and No Chills
Vital Signs / Physical Exam
Vital Signs
Vital Signs
Temp Pulse Resp BP Pulse Ox
98.0 F 85 16 158/93 95
07/30/24 15:00 07/30/24 15:00 07/30/24 15:00 07/30/24 15:00 07/30/24 15:00
Physical Exam
Constitutional: No Acute Distress, Comfortable, Chronically Ill and Non-toxic
Eyes: Sclera Anicteric
Pulmonary: Non Labored
Gastrointestinal: Non Distended
Genito-Urinary: Lindsey and Clear Urine; Negative Turbid Urine or Hematuria
Extremities: Negative Erythema
Neurological: Awake and Alert
Psychological: Calm
Objective Data
Lab Data
Lab Results
07/30/24 06:23
07/30/24 06:23
Estimated Creat Clear 80 ml/min 07/30/24 06:23
Lactic Acid Cancelled 07/23/24 21:00
Total Bilirubin 0.5 mg/dl (0.2-1.3) 07/28/24 06:31
AST 12 U/L (14-36) L 07/28/24 06:31
ALT < 10 U/L (0-35) 07/28/24 06:31
Alkaline Phosphatase 75 U/L (38-126) 07/28/24 06:31
Most recent labs reviewed.
Micro Results:
07/25/24 09:27 Blood Culture - Final
Blood/Venous No Growth - Final Report
07/23/24 22:01 Blood Culture - Final
Blood/Venous No Growth - Final Report
07/23/24 22:41 Blood Culture - Final
Blood/Venous No Growth - Final Report
07/23/24 17:11 Blood Culture - Final
Blood/Venous Gram Stain - Final
07/23/24 18:46 Blood Culture - Final
Blood/Venous Providencia rettgeri
Gram Stain - Final
07/23/24 18:20 Urine Culture - Final
Urine Providencia rettgeri
Escherichia coli
07/25/24 14:14 Nasal Screen MRSA (PCR) - Final
Nose MRSA not detected - performed by PCR methodology.
Urine Culture Final 07/23/2024
CC: Greater than 100,000 CFU/ML Providencia rettgeri
CC: 100,000 CFU/ML Escherichia coli
Organism 1 Providencia rettgeri
Organism 2 Escherichia coli
P.RETTGERI E.COLI
M.I.C. RX M.I.C. RX
--------- --- --------- ---
Amoxicillin/Potas. Clavulanate >16/8 R <=8/4 S
Ampicillin >16 R <=8 S
Ampicillin/Sulbactam 16/8 I <=4/2 S
Aztreonam <=4 S <=4 S
Cefazolin >16 R <=2 S
Cefepime <=2 S
Ceftriaxone <=1 S
Ertapenem <=0.5 S <=0.5 S
Ciprofloxacin 0.5 I 0.5 I
Gentamicin <=2 S <=2 S
Meropenem <=1 S <=1 S
Nitrofurantoin-Urine Only >64 R <=32 S
--> Piperacillin/Tazobactam <=8 S <=8 S
Tetracycline >8 R <=4 S
Tobramycin <=2 S <=2 S
Trimethoprim/Sulfamethoxazole <=2/38 S <=2/38 S
Imaging:
07/26/2024 Renal ultrasound: Suprapubic catheter present, with only a small amount of urine in the bladder. Echogenic debris is noted. There is moderate right diffuse calyceal dilatation with evidence for a 1.1 obstructing calculus in the right
renal pelvis.
[2024-07-30 21:53] LABS: Hematocrit 32.2 % (37.0-47.0); Hemoglobin 10.9 g/dL (12.0-16.0); Mean Corp Hgb Conc. 33.9 g/dL (33.0-37.0); Mean Corpuscular Hgb 28.8 pg (27.0-31.0); Mean Corpuscular Volume 85.2 fL (81.0-99.0); Mean Platelet Volume 10.4 fL (7.4-10.4); Platelet Count 224 10^3/uL (130-400); Red Blood Cell Count 3.78 10^6/uL (4.20-5.40); Red Cell Dist. Width 15.9 % (11.5-14.5); White Blood Cell Count 11.1 10^3/uL (4.8-10.8)
[2024-07-30 22:01] LABS: Blood Urea Nitrogen 15 mg/dl (7-17); Calcium 8.5 mg/dl (8.4-10.2); Carbon Dioxide 30 mmol/L (22-30); Chloride 106 mmol/L (98-107); Estimated Creatinine Clearance 70 ml/min; Glucose 95 mg/dl (70-99); Potassium 4.2 mmol/L (3.5-5.1); Sodium 138 mmol/L (135-145); eGFR > 60.00
[2024-07-30 22:13] LABS: Troponin I < 0.012 ng/ml
[2024-07-30 23:37] VITALS: BP 128/76
[2024-07-31] MEDS: ZOSYN 50 IV ×4 (04:49→22:48)
[2024-07-31 07:05] VITALS: BP 168/97
[2024-07-31 07:26] LABS: Hematocrit 32.5 % (37.0-47.0); Hemoglobin 10.7 g/dL (12.0-16.0); Mean Corp Hgb Conc. 32.9 g/dL (33.0-37.0); Mean Corpuscular Hgb 28.4 pg (27.0-31.0); Mean Corpuscular Volume 86.2 fL (81.0-99.0); Mean Platelet Volume 10.6 fL (7.4-10.4); Platelet Count 277 10^3/uL (130-400); Red Blood Cell Count 3.77 10^6/uL (4.20-5.40); Red Cell Dist. Width 15.9 % (11.5-14.5)
[2024-07-31 07:58] LABS: Blood Urea Nitrogen 12 mg/dl (7-17); Calcium 8.3 mg/dl (8.4-10.2); Carbon Dioxide 26 mmol/L (22-30); Chloride 109 mmol/L (98-107); Estimated Creatinine Clearance 80 ml/min; Glucose 77 mg/dl (70-99); Sodium 139 mmol/L (135-145); eGFR > 60.00
--- NOTE | 2024-07-31 08:19 | W.PN.URO.CBU ---
Today's Communication / Plan
-
Continue abx course
Plan for outpatient ureteroscopy and bladder stone removal to address remaining stones after discharge
Assessment / Plan
-
48F chronic urinary retention from neurogenic bladder managed with SP tube
admitted with sepsis and UTI
Found to have bilateral renal stones and bladder stones with R obstruction
s/p R ureteroscopy and stent placement
- Continue abx, course per ID
- Patient will need repeat procedure to address multiple renal and bladder stones - will plan to schedule this in the next 1-2 weeks. Recommend continuing abx through this time period given likely colonized stones/infection stones
Diagnosis
-
Date of Service: July 31, 2024
-
Patient Diagnosis:
Neurogenic bladder
bilateral renal stones
obstructing ureteral stone
bladder stones
Post Op s/p ureteroscopy/stent placement
Subjective
-
No events overnight
Objective
-
Vital Signs
Temp Pulse Resp BP Pulse Ox
97.4 F 59 16 168/97 96
07/31/24 07:05 07/31/24 07:05 07/31/24 07:05 07/31/24 07:05 07/31/24 07:05
Intake and Output
07/30/24 07/31/24 08/01/24
06:59 06:59 06:59
Intake Total 1670 / 1670 400 / 400
Output Total 3400 / 3400 3525 / 3525
Balance -1730 / -1730 -3125 / -3125
Intake:
Oral fluids 300 / 300 300 / 300
IV fluids (Total) 900 / 900
IV piggybacks 470 / 470 100 / 100
Output:
Urine, Lindsey 1999 1525 / 1525
Suprapubic output 1400 / 1400 1999
Laboratory Results
06/11/25 06:44
07/31/24 06:44
Physical Exam
-
General - well nourished, no acute distress
Chest - clear
Abdomen - soft, non-tender
SPT in place, clear
--- NOTE | 2024-07-31 11:02 | W.PN.HOSP.TC ---
Today's Communication/Plan
-
see A/P
Assessment / Plan
Assessment / Plan
A/P:
# Sepsis POA secondary to Catheter-Associated UTI and associated bacteremia
# Obstructive uropathy with right renal nephrolithiasis
Suprapubic catheter changed in the emergency department
urine culture positive for Providencia rettgeri and E coli
Blood culture positive for Providencia rettgeri, repeat blood culture negative from 07/23/2024
s/p OR 07/28 with R ureteroscopy and stent placement
Per Uro: Patient will need repeat procedure to address multiple renal and bladder stones, plan for coming week?
Cont Zosyn per ID
# Anemia 2/2 hemodilution
Hgb today at 10.7
# Hypokalemia, resolved
# Metabolic Acidosis, resolved
# Spastic Cerebral Palsy
appears to be non-verbal at baseline
Per family patient usual eats mostly regular food. She is noted to be retaining some potato chip in her mouth on evaluation
Resumed modified diet with pureed
Hold gabapentin and baclofen
DVT proph: Lovenox� holding luz-op and in setting of gross hematuria, started SCD
Code Status: Full Code
DW mother at bedside
Anticipated Discharge: > 48 hours
Subjective/Interval History
-
Date of Service: July 31, 2024
Objective Data
-
Labs:
Laboratory Results
07/31/24
06:44
WBC 10.0
Hgb 10.7 L
Hct 32.5 L
Plt Count 277 D
Sodium 139
Potassium 4.0
Chloride 109 H
Carbon Dioxide 26
BUN 12
Creatinine 0.7
Glucose 77
Calcium 8.3 L
Vital Signs:
Vital Signs
Temp Pulse Resp BP Pulse Ox
36.3 C 59 16 168/97 97
06/11/25 07:05 07/31/24 07:05 07/31/24 07:05 07/31/24 07:05 07/31/24 08:00
I&O
07/30/24 07/31/24 08/01/24
06:59 06:59 06:59
Intake Total 1670 / 1670 400 / 400
Output Total 3400 / 3400 3525 / 3525
Balance -1730 / -1730 -3125 / -3125
Review of Systems
-
Unable to obtain full review of systems at this time due to: Patient Non-verbal
Physical Exam
-
General: Well Nourished, No Apparent Distress and Comfortable; Negative Respiratory Distress
HEENT: Normocephalic, Atraumatic, Nose Appears Normal and Ears Appear Normal; Negative Oxygen
Respiratory: Clear to Auscultation and Non Labored Respirations; Negative Accessory Resp Muscle Use
Cardiac: Regular Rhythm and S1/S2
GI: Soft, Nontender, Nondistended and Normal Bowel Sounds
Genito-urinary: Supra Pubic Tube
Musculoskeletal: Other (Contracted upper extremities; Muscle atrophy of lower extremities)
Skin: Warm and Dry
Neuro: Awake
Psych: Calm; Negative Intact Judgement/Insight
Data Reviewed
-
Labs: Labs Reviewed by me
[2024-07-31 15:11] VITALS: BP 153/89
[2024-07-31] MEDS: LOVENOX 40 MG SC (17:10)
--- NOTE | 2024-07-31 17:33 | W.PN.ID1 ---
Date of Service
Date of Service: July 31, 2024
Today's Communication
Continue antibiotics. See below�
Assessment / Plan
Bacteremia with Providencia rettgeri
Complicated urinary tract infection
- Cultures with E. coli and Providencia rettgeri
Obstructive uropathy with right renal nephrolithiasis
Suspected pyelonephritis
Leukocytosis; now leukopenic
Hx melanoma
Cerebral palsy
Sacral decubiti
Urinary retention
Recommendations:
Continue with Zosyn while inpatient. Urologic surgery noted to be tentatively for next week.
No objection to discharge from Infectious Diseases standpoint.
At discharge, transition to cefdinir 300 mg p.o. twice daily, to continue at least through 08/07/2024, although therapy can be extended if necessary.
Follow white count and temperature curve. Today's white count noted to be improved.
����������������������������������������������������������
Chief Complaint
-: UTI and Bacteremia
Subjective / Review of Systems
Review of Systems: No Fever and No Chills
Vital Signs / Physical Exam
Vital Signs
Vital Signs
Temp Pulse Resp BP Pulse Ox
97.6 F 62 16 153/89 97
07/31/24 15:11 07/31/24 15:11 07/31/24 15:11 07/31/24 15:11 07/31/24 15:11
Physical Exam
Constitutional: No Acute Distress, Comfortable, Chronically Ill and Non-toxic
Eyes: Sclera Anicteric
Pulmonary: Non Labored
Gastrointestinal: Non Distended
Genito-Urinary: Lindsey and Clear Urine; Negative Turbid Urine or Hematuria
Extremities: Negative Erythema
Neurological: Awake and Alert
Psychological: Calm
Objective Data
Lab Data
Lab Results
07/31/24 06:44
07/31/24 06:44
Estimated Creat Clear 80 ml/min 07/31/24 06:44
Lactic Acid Cancelled 07/23/24 21:00
Total Bilirubin 0.5 mg/dl (0.2-1.3) 07/28/24 06:31
AST 12 U/L (14-36) L 07/28/24 06:31
ALT < 10 U/L (0-35) 07/28/24 06:31
Alkaline Phosphatase 75 U/L (38-126) 07/28/24 06:31
Most recent labs reviewed.
Micro Results:
07/25/24 09:27 Blood Culture - Final
Blood/Venous No Growth - Final Report
07/23/24 22:01 Blood Culture - Final
Blood/Venous No Growth - Final Report
07/23/24 22:41 Blood Culture - Final
Blood/Venous No Growth - Final Report
07/23/24 17:11 Blood Culture - Final
Blood/Venous Gram Stain - Final
07/23/24 18:46 Blood Culture - Final
Blood/Venous Providencia rettgeri
Gram Stain - Final
07/23/24 18:20 Urine Culture - Final
Urine Providencia rettgeri
Escherichia coli
07/25/24 14:14 Nasal Screen MRSA (PCR) - Final
Nose MRSA not detected - performed by PCR methodology.
Urine Culture Final 07/23/2024
CC: Greater than 100,000 CFU/ML Providencia rettgeri
CC: 100,000 CFU/ML Escherichia coli
Organism 1 Providencia rettgeri
Organism 2 Escherichia coli
P.RETTGERI E.COLI
M.I.C. RX M.I.C. RX
--------- --- --------- ---
Amoxicillin/Potas. Clavulanate >16/8 R <=8/4 S
Ampicillin >16 R <=8 S
Ampicillin/Sulbactam 16/8 I <=4/2 S
Aztreonam <=4 S <=4 S
Cefazolin >16 R <=2 S
Cefepime <=2 S
Ceftriaxone <=1 S
Ertapenem <=0.5 S <=0.5 S
Ciprofloxacin 0.5 I 0.5 I
Gentamicin <=2 S <=2 S
Meropenem <=1 S <=1 S
Nitrofurantoin-Urine Only >64 R <=32 S
--> Piperacillin/Tazobactam <=8 S <=8 S
Tetracycline >8 R <=4 S
Tobramycin <=2 S <=2 S
Trimethoprim/Sulfamethoxazole <=2/38 S <=2/38 S
Imaging:
07/26/2024 Renal ultrasound: Suprapubic catheter present, with only a small amount of urine in the bladder. Echogenic debris is noted. There is moderate right diffuse calyceal dilatation with evidence for a 1.1 obstructing calculus in the right
renal pelvis.
[2024-07-31 23:45] VITALS: BP 152/81
[2024-08-01] MEDS: ZOSYN 50 IV ×2 (04:17→09:25)
[2024-08-01 07:53] LABS: Hemoglobin 11.3 g/dL (12.0-16.0); Mean Corp Hgb Conc. 33.2 g/dL (33.0-37.0); Mean Corpuscular Hgb 28.3 pg (27.0-31.0); Mean Corpuscular Volume 85.2 fL (81.0-99.0); Mean Platelet Volume 9.9 fL (7.4-10.4); Platelet Count 397 10^3/uL (130-400); Red Blood Cell Count 3.99 10^6/uL (4.20-5.40); Red Cell Dist. Width 15.8 % (11.5-14.5); White Blood Cell Count 12.8 10^3/uL (4.8-10.8)
[2024-08-01 08:15] LABS: Blood Urea Nitrogen 11 mg/dl (7-17); Calcium 8.8 mg/dl (8.4-10.2); Carbon Dioxide 26 mmol/L (22-30); Chloride 109 mmol/L (98-107); Estimated Creatinine Clearance 80 ml/min; Glucose 96 mg/dl (70-99); Potassium 4.1 mmol/L (3.5-5.1); Sodium 140 mmol/L (135-145); eGFR > 60.00
[2024-08-01 08:46] VITALS: BP 161/101
--- NOTE | 2024-08-01 09:56 | W.PN.HOSP.TC ---
Addendum entered and electronically signed by Chelita Nelson MD 08/01/24 10:28:
calcified with Uro Dr Gentile, pt can be discharged to return as an outpatient for procedure.
Per ID, transition to cefdinir 300 mg p.o. twice daily, to continue at least through 08/07/2024, although therapy can be extended if necessary.
total DC time 40 min
Original Note:
Today's Communication/Plan
-
see A/P
Assessment / Plan
Assessment / Plan
A/P:
# Sepsis POA secondary to Catheter-Associated UTI and associated bacteremia
# Obstructive uropathy with right renal nephrolithiasis
Suprapubic catheter changed in the emergency department
urine culture positive for Providencia rettgeri and E coli
Blood culture positive for Providencia rettgeri, repeat blood culture negative from 07/23/2024
s/p OR 07/28 with R ureteroscopy and stent placement
Per Uro: Patient will need repeat procedure to address multiple renal and bladder stones, plan for coming Tu08/06?
Cont Zosyn per ID while in the hospital
# Anemia 2/2 hemodilution
Hgb stable
# Hypokalemia, resolved
# Metabolic Acidosis, resolved
# Spastic Cerebral Palsy
appears to be non-verbal at baseline
Per family patient usual eats mostly regular food. She is noted to be retaining some potato chip in her mouth on evaluation
Resumed modified diet with pureed
Hold gabapentin and baclofen
DVT proph: Lovenox� holding luz-op and in setting of gross hematuria, started SCD
Code Status: Full Code
DW mother at bedside
Anticipated Discharge: > 48 hours
Subjective/Interval History
-
Date of Service: August 01, 2024
Objective Data
-
Labs:
Laboratory Results
08/01/24
07:15
WBC 12.8 H
Hgb 11.3 L
Hct 34.0 L
Plt Count 397 D
Sodium 140
Potassium 4.1
Chloride 109 H
Carbon Dioxide 26
BUN 11
Creatinine 0.7
Glucose 96
Calcium 8.8
Vital Signs:
Vital Signs
Temp Pulse Resp BP Pulse Ox
36.6 C 82 16 161/101 96
08/01/24 08:46 08/01/24 08:46 08/01/24 08:46 08/01/24 08:46 08/01/24 08:46
I&O
07/31/24 08/01/24 08/02/24
06:59 06:59 06:59
Intake Total 400 / 400 100 / 100
Output Total 3525 / 3525 2074
Balance -3124 / -3124 -1974 /
Review of Systems
-
Unable to obtain full review of systems at this time due to: Patient Non-verbal
Physical Exam
-
General: Well Nourished, No Apparent Distress and Comfortable; Negative Respiratory Distress
HEENT: Normocephalic, Atraumatic, Nose Appears Normal and Ears Appear Normal; Negative Oxygen
Respiratory: Clear to Auscultation and Non Labored Respirations; Negative Accessory Resp Muscle Use
Cardiac: Regular Rhythm and S1/S2
GI: Soft, Nontender, Nondistended and Normal Bowel Sounds
Genito-urinary: Supra Pubic Tube
Musculoskeletal: Other (Contracted upper extremities; Muscle atrophy of lower extremities)
Skin: Warm and Dry
Neuro: Awake
Psych: Calm; Negative Intact Judgement/Insight
Data Reviewed
-
Labs: Labs Reviewed by me
--- NOTE | 2024-08-01 12:29 | CM ---
Chart reviewed and patient has been cleared for discharge today, plan is to home with parents and [facility]. Plan is home today, patient's parents to provide transport.
Plan; Home with [facility], IMM completed and placed on chart.
--- NOTE | 2024-08-01 12:47 | W.DCSUMMARY ---
Discharge Summary
Discharge Data
Date of Admission: 07/23/24
Date of Discharge: 08/01/24
-
Pending Results: No
Hospital Course
Principal Diagnosis:
# Sepsis POA secondary to suprapubic Catheter-Associated UTI with associated bacteremia with Providencia rettgeri
# Obstructive uropathy with right renal nephrolithiasis
Chronic Diagnoses:�
Spastic Cerebral Palsy, appears to be non-verbal at baseline
Consultations:�
Urology
Infectious disease
Procedures:�
s/p OR 07/28 with R ureteroscopy and stent placement
Clinical course:�
This is a 48-year-old female, with past medical history as stated above, who presented with fever and lethargy.
Problem 1:
# Sepsis POA secondary to suprapubic Catheter-Associated UTI with associated bacteremia with Providencia rettgeri
# Obstructive uropathy with right renal nephrolithiasis.
Her suprapubic catheter was changed in the emergency department.
Her urine culture grew Providencia rettgeri and E coli.
Her blood culture grew Providencia rettgeri; with repeat blood culture negative from 07/23/2024.
She underwent R ureteroscopy and stent placement on 07/28.
Per Uro, she will need to repeat procedure to address the multiple renal and bladder stones; this can be done as an outpatient.
The patient received Zosyn while in the hospital, and was discharged with cefdinir 300 mg twice daily for 7 more days (until 08/07/2024).
As for the rest of her medical problems, they were stable during her hospital stay.
Discharge Plan
-
Patient Disposition: Home with Home Care
Discharge Diagnosis/Procedures: Sepsis secondary to Catheter-Associated UTI and associated bacteremia (with Providencia);
Obstructive uropathy with right renal nephrolithiasis status post R ureteroscopy and stent placement;
Spastic Cerebral Palsy
Condition: Fair
Diet: As tolerated and Other diet
Additional Diets: Pureed diet
Activity: As tolerated
Driving Restrictions: No driving
Referrals:
Samm Messer I., [Family Provider, Internal Medicine] - in less than 1 week
Jere Sadler MD [Active, Urology]
Referral Note: the pt has a stent in her kidney andbladder This MUST be remocved or chandged within3 months She has bladder and some kidney stones Call DR TRINIDAD OR DR SADLER [phone] SCHEDULE APPT WITHIN 6 WEEKS TO [facility]
STONE TREATMENT CAN ALSO SO AT TIME OF SP TUBE CHANGE
Additional Discharge Medication Instructions: Continue cefdinir 300 mg twice daily until at least through 08/07/2024 (therapy can be extended if necessary)
Prescriptions:
New
cefdinir 300 mg capsule
300 mg PO Q12H 7 Days Qty: 14 0RF
Continued
acetaminophen 650 MG/20.3 ML solution
650 mg PO PRN PRN (Reason: fever/pain)
Patient Comments:
powder form, placed directly in mouth, no mixing needed
Discontinued
baclofen 10 MG tablet
10 mg PO DAILY
ascorbic acid (vitamin C) [Vitamin C] 500 MG tablet
1,000 mg PO DAILY
cyanocobalamin (vitamin B-12) 1,000 MCG tablet
1,000 mcg PO DAILY
polyethylene glycol 3350 [Miralax] 17 gram Powder In Packet
17 g PO DAILY
zinc
50 mg PO DAILY
methenamine hippurate 1 gram Tablet
1 g PO BID
gabapentin 250 mg/5 mL (5 mL) Solution
250 mg PO DAILY
Discharge Orders:
Discharge Patient (As Directed); Ordered 08/01/24
Ordered By: Chelita Nelson
Discharge Date and Time
Print Language: CYMRO
--- NOTE | 2024-08-01 13:18 | W.PN.ID1 ---
Date of Service
Date of Service: August 01, 2024
Today's Communication
Continue antibiotics. See below�
Assessment / Plan
Bacteremia with Providencia rettgeri
Complicated urinary tract infection
- Cultures with E. coli and Providencia rettgeri
Obstructive uropathy with right renal nephrolithiasis
Suspected pyelonephritis
Leukocytosis (low-grade)
Hx melanoma
Cerebral palsy
Sacral decubiti
Urinary retention
Recommendations:
Urologic surgery noted to be tentatively for next week.
No objection to discharge from Infectious Diseases standpoint.
At discharge, transition to cefdinir 300 mg p.o. twice daily, to continue at least through 08/07/2024, although therapy can be extended if felt necessary.
Maintain good hydration.
����������������������������������������������������������
Chief Complaint
-: UTI and Bacteremia
Subjective / Review of Systems
Review of Systems: No Fever
Vital Signs / Physical Exam
Vital Signs
Vital Signs
Temp Pulse Resp BP Pulse Ox
98 F 82 16 161/101 96
08/01/24 08:46 08/01/24 08:46 08/01/24 08:46 08/01/24 08:46 08/01/24 08:46
Physical Exam
Constitutional: No Acute Distress, Comfortable, Chronically Ill and Non-toxic
Eyes: Sclera Anicteric
Pulmonary: Non Labored
Gastrointestinal: Non Distended
Genito-Urinary: Lindsey and Clear Urine; Negative Turbid Urine or Hematuria
Extremities: Negative Erythema
Neurological: Awake and Alert
Psychological: Calm
Objective Data
Lab Data
Lab Results
08/01/24 07:15
08/01/24 07:15
Estimated Creat Clear 80 ml/min 08/01/24 07:15
Lactic Acid Cancelled 07/23/24 21:00
Total Bilirubin 0.5 mg/dl (0.2-1.3) 07/28/24 06:31
AST 12 U/L (14-36) L 07/28/24 06:31
ALT < 10 U/L (0-35) 07/28/24 06:31
Alkaline Phosphatase 75 U/L (38-126) 07/28/24 06:31
Most recent labs reviewed.
Micro Results:
07/25/24 09:27 Blood Culture - Final
Blood/Venous No Growth - Final Report
07/23/24 22:01 Blood Culture - Final
Blood/Venous No Growth - Final Report
07/23/24 22:41 Blood Culture - Final
Blood/Venous No Growth - Final Report
07/23/24 17:11 Blood Culture - Final
Blood/Venous Gram Stain - Final
07/23/24 18:46 Blood Culture - Final
Blood/Venous Providencia rettgeri
Gram Stain - Final
07/23/24 18:20 Urine Culture - Final
Urine Providencia rettgeri
Escherichia coli
07/25/24 14:14 Nasal Screen MRSA (PCR) - Final
Nose MRSA not detected - performed by PCR methodology.
Urine Culture Final 07/23/2024
CC: Greater than 100,000 CFU/ML Providencia rettgeri
CC: 100,000 CFU/ML Escherichia coli
Organism 1 Providencia rettgeri
Organism 2 Escherichia coli
P.RETTGERI E.COLI
M.I.C. RX M.I.C. RX
--------- --- --------- ---
Amoxicillin/Potas. Clavulanate >16/8 R <=8/4 S
Ampicillin >16 R <=8 S
Ampicillin/Sulbactam 16/8 I <=4/2 S
Aztreonam <=4 S <=4 S
Cefazolin >16 R <=2 S
Cefepime <=2 S
Ceftriaxone <=1 S
Ertapenem <=0.5 S <=0.5 S
Ciprofloxacin 0.5 I 0.5 I
Gentamicin <=2 S <=2 S
Meropenem <=1 S <=1 S
Nitrofurantoin-Urine Only >64 R <=32 S
--> Piperacillin/Tazobactam <=8 S <=8 S
Tetracycline >8 R <=4 S
Tobramycin <=2 S <=2 S
Trimethoprim/Sulfamethoxazole <=2/38 S <=2/38 S
Imaging:
07/26/2024 Renal ultrasound: Suprapubic catheter present, with only a small amount of urine in the bladder. Echogenic debris is noted. There is moderate right diffuse calyceal dilatation with evidence for a 1.1 obstructing calculus in the right
renal pelvis.
[2024-08-01 13:56] VITALS: BP 160/93
[2024-08-01 22:09] LABS: Stone Analysis Mass 4 mg
== END 2024-08-01 15:30 | disposition home health service (06) | DRG 659 ==
LOC: 4 WEST ACU 20:20
PROVIDERS: Internal Medicine; Physician Assistant Medical; ADMITTING PHYSICIAN Internal Medicine; ATTENDING PHYSICIAN Internal Medicine; CONSULT PHYSICIAN Internal Medicine Infectious Disease; CONSULT PHYSICIAN Specialist; EMERGENCY PHYSICIAN Student in an Organized Health Care Education/Training Program; FAMILY PHYSICIAN Internal Medicine
PROC: 0T768DZ Dilation of Right Ureter with Intraluminal Device, Via Natural or Artificial Opening Endoscopic (ICD-10-PCS; 2024-07-27)
PROC: 0TC68ZZ Extirpation of Matter from Right Ureter, Via Natural or Artificial Opening Endoscopic (ICD-10-PCS; 2024-07-27)
PROC: BT1D1ZZ Fluoroscopy of Right Kidney, Ureter and Bladder using Low Osmolar Contrast (ICD-10-PCS; 2024-07-27)
DX: T83.518A Infection and inflammatory reaction due to other urinary catheter, initial encounter (principal); A41.9 Sepsis, unspecified organism; E87.20 Acidosis, unspecified; N39.0 Urinary tract infection, site not specified; N20.2 Calculus of kidney with calculus of ureter; G80.1 Spastic diplegic cerebral palsy; Y84.6 Urinary catheterization as the cause of abnormal reaction of the patient, or of later complication, without mention of misadventure at the time of the procedure; N13.9 Obstructive and reflux uropathy, unspecified; Z74.01 Bed confinement status; Z87.440 Personal history of urinary (tract) infections; Z85.820 Personal history of malignant melanoma of skin; Z87.442 Personal history of urinary calculi; D64.9 Anemia, unspecified; E87.6 Hypokalemia; L89.159 Pressure ulcer of sacral region, unspecified stage; N21.0 Calculus in bladder; N31.9 Neuromuscular dysfunction of bladder, unspecified; Z93.59 Other cystostomy status
CPT/HCPCS: 51702; 71045; 74176; 74420; 76000; 76770; 80048; 80053; 81003; 81015; 82010; 82365; 82962; 83605; 83735; 84484; 85027; 87040; 87077; 87086; 87154; 87186; 87205; 87641; 92526; 92610; 93005; 96361; 96365; 99284; C1894; C2617

== ENCOUNTER 2024-08-06 06:07 | Day surgery (SDC) | payer MEDICARE, OTHER, SELFPAY ==
[2024-08-06] VITALS (10 sets, daily range): BP systolic 136–146; BP diastolic 69–79; BMI 22.1
[2024-08-13 11:15] LABS: Stone Analysis Mass 133 mg
== END 2024-08-06 13:00 | disposition home or self-care (01) ==
LOC: SDS 06:07
PROVIDERS: ATTENDING PHYSICIAN Urology
DX: N20.2 Calculus of kidney with calculus of ureter (principal); N21.0 Calculus in bladder
CPT/HCPCS: 52356; 52317; 74018; 76000; 82365; C2617